=== PATIENT | female | born 1970 | race Caucasian/White ===

== ENCOUNTER → 2016-08-10 | Outpatient (CLI) | payer BC ==
--- NOTE | 2016-08-10 13:01 | XR ---
EXAMINATION TYPE: XR chest 2V DATE OF EXAM: 08/10/2016 12:56 PM COMPARISON: 08/06/2015 INDICATION: Breast cancer, right axillary and chest pain TECHNIQUE: 2 view chest FINDINGS: The heart size is normal. The pulmonary vasculature is normal. The lungs are clear. IMPRESSION: 1. No acute pulmonary process.
== END | disposition home or self-care (01) ==
LOC: RADXRMAIN 12:39
PROVIDERS: ATTEND Internal Medicine Hematology & Oncology
DX: C50.811 Malignant neoplasm of overlapping sites of right female breast (principal); C54.9 Malignant neoplasm of corpus uteri, unspecified; C73 Malignant neoplasm of thyroid gland; D72.829 Elevated white blood cell count, unspecified; R07.9 Chest pain, unspecified
CPT/HCPCS: 71020

== ENCOUNTER 2016-08-26 14:19 | Emergency (ER) | payer BC ==
[2016-08-26 14:28] VITALS: BP 141/73; PULSE 89; RESP 16; TEMP 97.6
--- NOTE | 2016-08-26 14:37 | ED ---
Fall HPI - General Chief Complaint: Fall Stated Complaint: Fall Time Seen by Provider: 08/26/16 14:30 Source: patient, RN notes reviewed Mode of arrival: ambulatory Limitations: no limitations - History of Present Illness Initial Comments: 46-year-old female presents emergency Department chief complaint of fall. She states she was rollerblading hit the dirt fell. She states she fell backwards onto the dirt. Denies any head injury no LOC. Patient complains of low back pain. She also complains of abrasions to bilateral elbows along with increased pain to the right elbow. She states is painful with range of motion. She denies any shortness of breath but states it hurts when she takes deep inspiration her back. She states she has no rib tenderness denies any abdominal pain including nausea vomiting. Patient has no lower extremity injuries. Patient states she was wearing a helmet. - Related Data Home Medications Medication Instructions Recorded Confirmed Hyoscyamine Sulfate [Hyoscyamine 0.125 mg SL DAILY 12/11/13 08/26/16 Sulfate SL] Lansoprazole [Prevacid] 30 mg PO DAILY 12/11/13 08/26/16 Levothyroxine Sodium [Synthroid] 175 mcg PO DAILY 12/11/13 08/26/16 ALPRAZolam [Xanax] 0.25 mg PO TID PRN 03/26/16 08/26/16 Previous Rx's Medication Instructions Recorded Hydrocodone/Acetaminophen [[place] 1 tab PO Q6HR PRN #15 tab 08/26/16 5-325] Allergies Allergy/AdvReac Type Severity Reaction Status Date / Time aspirin Allergy Unknown Verified 08/26/16 14:28 Penicillins Allergy Dyspnea Verified 08/26/16 14:28 Review of Systems ROS Statement: Those systems with pertinent positive or pertinent negative responses have been documented in the HPI. ROS Other: All systems not noted in ROS Statement are negative. Past Medical History Past Medical History: Asthma, Cancer, Hypertension Additional Past Medical History / Comment(s): bowel blockage History of Any Multi-Drug Resistant Organisms: None Reported Past Surgical History: Breast Surgery, Section, Hysterectomy, Tonsillectomy, Tubal Ligation Additional Past Surgical History / Comment(s): knee surgery, nasal repair, bowel surgery, donated (L) kidney. Past Psychological History: No Psychological Hx Reported Smoking Status: Current every day smoker Past Alcohol Use History: Occasional Past Drug Use History: None Reported General Exam Limitations: no limitations General appearance: alert, in no apparent distress Head exam: Present: atraumatic, normocephalic, normal inspection Neck exam: Present: normal inspection, full ROM. Absent: tenderness, meningismus, lymphadenopathy Respiratory exam: Present: normal lung sounds bilaterally, chest wall tenderness. Absent: respiratory distress, wheezes, rales, rhonchi, stridor Cardiovascular Exam: Present: regular rate, normal rhythm, normal heart sounds. Absent: systolic murmur, diastolic murmur, rubs, gallop, clicks GI/Abdominal exam: Present: soft, normal bowel sounds. Absent: distended, tenderness, guarding, rebound, rigid Extremities exam: Present: other (Bilateral elbows there are multiple abrasions noted no active bleeding there is some swelling noted to the right elbow with pain on range of motion. Neurovascular intact left elbow full range of motion neurovascular intact no iris deformity) Back exam: Present: full ROM, tenderness (Tenderness to the mid to low back tenderness), paraspinal tenderness, vertebral tenderness Neurological exam: Present: alert, oriented X3, CN II-XII intact, reflexes normal. Absent: motor sensory deficit Skin exam: Present: warm, dry, intact, normal color. Absent: rash Course Vital Signs 08/26/16 14:22 Temperature 97.6 F Pulse Rate 89 Respiratory 16 Rate Blood Pressure 141/73 O2 Sat by Pulse 100 Oximetry Medical Decision Making - Medical Decision Making 46-year-old female presented emergency from for fall from rollerblading. Patient has no acute fractures per x-ray and radiology reading. Patient will be discharged with pain medication. Return parameters were discussed. Disposition Clinical Impression: Fall from roller shoes, Back contusion, Elbow contusion Disposition: HOME SELF-CARE Condition: Stable Instructions: Contusion in Adults (ED) Additional Instructions: Please return to the Emergency Department if symptoms worsen or any other concerns. Prescriptions: Hydrocodone/Acetaminophen [[place] 5-325] 1 tab PO Q6HR PRN #15 tab PRN Reason: Pain Time of Disposition: 15:01
--- NOTE | 2016-08-26 14:52 | XR ---
EXAMINATION TYPE: XR thoracic spine 2V DATE OF EXAM: 08/26/2016 2:48 PM CLINICAL HISTORY: pain TECHNIQUE: Frontal, lateral, and swimmer's view of thoracic spine are obtained. COMPARISON: None. FINDINGS: Thoracic spine show satisfactory alignment without evidence of acute fracture or dislocatio n. Vertebral body heights are preserved. Mild scattered degenerative disc space narrowing and spondy losis. Visualized ribs are unremarkable. IMPRESSION: No acute fracture or dislocation is seen in the thoracic spine. ICD 10 NO FRACTURE, INIT IAL EVALUATION
--- NOTE | 2016-08-26 14:53 | XR ---
EXAMINATION TYPE: XR lumbar spine 2 or 3V DATE OF EXAM ORDERED: 08/26/2016 2:48 PM HISTORY: Pain. COMPARISON: Previous study dated 06/16/2009. FINDINGS: Vertebral body height and alignment are maintained. There is no spondylolysis or spondylol isthesis. No fractures are seen. There is mild, diffuse disc space loss, most marked at L2-3 with relative sparing of L3-4. The pedicl es are intact. IMPRESSION: 1. NO ACUTE OSSEOUS LESION. 2. DEGENERATIVE CHANGE.
--- NOTE | 2016-08-26 14:54 | XR ---
EXAMINATION TYPE: XR elbow complete RT DATE OF EXAM ORDERED: 08/26/2016 2:50 PM HISTORY: Pain. COMPARISON: None. FINDINGS: No fracture, dislocation or elbow joint effusion is seen. There is a tiny olecranon spur. IMPRESSION: 1. NO ACUTE OSSEOUS LESION. 2. TINY OLECRANON SPUR.
== END 2016-08-26 15:07 | disposition home or self-care (01) ==
LOC: EC 14:19
DX: S50.02XA Contusion of left elbow, initial encounter (principal); S50.01XA Contusion of right elbow, initial encounter; S30.0XXA Contusion of lower back and pelvis, initial encounter; Z79.899 Other long term (current) drug therapy; Z88.0 Allergy status to penicillin; Z88.6 Allergy status to analgesic agent; Z85.9 Personal history of malignant neoplasm, unspecified; W17.89XA Other fall from one level to another, initial encounter
CPT/HCPCS: 72070; 72100; 99283

== ENCOUNTER → 2016-12-10 | Outpatient (CLI) | payer OTHER ==
--- NOTE | 2016-12-10 09:45 | MR ---
EXAMINATION TYPE: MR lumbar wo con DATE OF EXAM: 12/10/2016 COMPARISON: NONE HISTORY: HX of Breast CA, Neck and Low Back Pain since 2016 TECHNIQUE: T1 and T2 axial and sagittal images of the lumbar spine are submitted. FINDINGS: There is no abnormal signal seen within the visualized spinal cord or paraspinal soft tissu es. At L1-2 there is no disc herniation or canal stenosis. No foraminal encroachment. At L2-3 there is degenerative disc disease and circumferential disc bulging with hypertrophy of the f acet joints. No Canal stenosis or foraminal encroachment. At L3-4 there is moderate facet arthropathy with no disc herniation or canal stenosis. Neural foramin a patent. At L4-5 there is degenerative disc disease with facet arthropathy and very minimal anterolisthesis of L4 on L5 which appears to be secondary to marked facet arthropathy. Mild bilateral foraminal encroac hment. No canal stenosis or focal herniation. At L5-S1 there is marked facet arthropathy but no disc herniation, canal stenosis, or foraminal encro achment. IMPRESSION: 1. Multilevel degenerative disc disease with multilevel severe facet arthropathy and the most marked findings seen at L4-5 and L5-S1. Minimal anterolisthesis L4 on L5 results in bilateral foraminal encr oachment. 2. No focal focal herniation or canal stenosis. 3. 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 EXAMINATION TYPE: MR tspine wo con DATE OF EXAM: 12/10/2016 COMPARISON: NONE HISTORY: HX of Breast CA, Neck and Low Back Pain since 2015 Standard multiplanar, multisequence MRI departmental protocol Multiplanar, multisequence images of the thoracic spine were acquired. FINDINGS: Alignment is anatomic. There is loss of vertebral signal and space at all levels compatible with mild to moderate multilevel degenerative disc disease. At T1-T2 there is very mild left paracentral disc bulging but no focal herniation or canal stenosis. Neural foramina remain patent. At T2-T3 there is no disc herniation, canal stenosis, or foraminal encroachment. T3-T4 there is no disc herniation, canal stenosis or foraminal encroachment. At T4-T5 there is no disc herniation, canal stenosis or foraminal encroachment. At T5-T6 there is a right paracentral focal disc small herniation. There is moderate effacement of th ecal sac. Neural foramina remains patent with mild narrowing. No spinal cord contact. At T6-T7 there is a focal right paracentral disc herniation results in mild to moderate anterior comp ression of the spinal cord. Chronic appearing endplate deformity of T6 noted. Compatible with chronic mild compression. T7-T8 mild central disc protrusion with moderate effacement of thecal sac but no canal stenosis. Neur al foramina remain patent. At T8-T9 there is no disc herniation, canal stenosis, or foraminal encroachment. At T9-T10 there is no disc herniation, canal stenosis, or foraminal encroachment At T10-T11 there is no disc herniation or canal stenosis. Left lateral disc bulging noted which resul ts in mild to moderate left-sided foraminal encroachment. At T11-T12 there is left paracentral disc protrusion with mild left-sided foraminal encroachment. Mil d effacement of thecal sac but no canal stenosis. No abnormal signal the visualized spinal cord. Marrow signal is maintained. No paraspinal masses. Visualized aorta of normal caliber. IMPRESSION: 1. Multilevel degenerative disc disease with mild to moderate anterior compression of spinal cord T6- T7 secondary to focal right paracentral disc herniation. No abnormal signal in the visualized spinal cord. 2. Multiple disc herniation or protrusions as discussed above with multilevel degenerative disc disea se.
== END | disposition home or self-care (01) ==
LOC: RADMRIMAIN 08:19
PROVIDERS: ATTEND Radiology Radiation Oncology
DX: C50.411 Malignant neoplasm of upper-outer quadrant of right female breast (principal); M51.24 Other intervertebral disc displacement, thoracic region; M43.16 Spondylolisthesis, lumbar region; M51.36 Other intervertebral disc degeneration, lumbar region; M51.34 Other intervertebral disc degeneration, thoracic region; G95.29 Other cord compression; M46.86 Other specified inflammatory spondylopathies, lumbar region
CPT/HCPCS: 72146; 72148

== ENCOUNTER → 2017-04-07 | Outpatient (CLI) | payer OTHER ==
--- NOTE | 2017-04-11 10:23 | USB ---
Reason for exam: clinical finding. History: Patient is postmenopausal, has history of breast cancer at age 45, has history of endometrial cancer at age 25, and has history of other cancer at age 20. Family history of breast cancer in mother, premenopausal breast cancer in sister at age 30, and breast cancer in maternal aunt. Malignant US biopsy breast VAD RT of the right breast, August 04, 2015. Benign excisional biopsy of the right breast, May 27, 2002. Ultrasound-guided cyst aspiration of the right breast, November 15, 1999. Cyst aspiration of the right breast. Taking hormonal contraceptives for 6 years beginning at age 32. Physical Findings: Nurse Summary: Patient complains of right breast lump for 1 month green/yellow discharge, constant sharp pain. 1 cm nodule right breast at 4 o'clock (nurse mj). US Breast RT Right breast ultrasound includes all four quadrants, the retroareolar region and axilla. Finding demonstrates a 1.6 x 0.6 x 0.9cm oval, hypoechoic lesion at 4 o'clock, a 0.9 x 0.7 x 0.5cm oval, hypoechoic lesion at 3 o'clock for which a biopsy is recommended for these locations, a 0.4 x 0.4 x 0.5cm oval, hypoechoic lesion at 5 o'clock, a 0.3 x 0.3 x 0.5cm oval, hypoechoic lesion at 9 o'clock and a 1.5 x 0.8 x 1.4cm oval, mixed lesion at 10 o'clock, area of scar prior cancer. These results were verbally communicated with the patient and result sheet given to the patient on 04/07/17. ASSESSMENT: Incomplete: need additional imaging evaluation, BI-RAD 0 RECOMMENDATION: Special view mammogram of the right breast.
--- NOTE | 2017-04-13 07:32 | MM ---
Reason for exam: additional evaluation requested from abnormal screening. Last mammogram was performed 1 year and 8 months ago. History: Patient is postmenopausal, has history of breast cancer at age 45, has history of endometrial cancer at age 25, and has history of other cancer at age 20. Family history of breast cancer in mother, premenopausal breast cancer in sister at age 30, and breast cancer in maternal aunt. Malignant US biopsy breast VAD RT of the right breast, August 04, 2015. Benign excisional biopsy of the right breast, May 27, 2002. Ultrasound-guided cyst aspiration of the right breast, November 15, 1999. Cyst aspiration of the right breast. Taking hormonal contraceptives for 6 years beginning at age 32. MG Diagnostic Mammo RT w CAD CC and MLO view(s) were taken of the right breast. Prior study comparison: August 04, 2015, right breast MG diagnostic mammo RT wo CAD. July 24, 2015, bilateral MG diagnostic mammo w CAD HERMELINDA. The breast tissue is heterogeneously dense. This may lower the sensitivity of mammography. Finding: There are typically benign dystrophic, amorphous, regional calcifications in the right breast. Post surgical changes. No significant changes in finding since August 04, 2015. These results were verbally communicated with the patient and result sheet given to the patient on 04/07/17. ASSESSMENT: Benign, BI-RAD 2 RECOMMENDATION: Aspiration and ultrasound core biopsy of the right breast. (Based on ultrasound results, right breast [address]). [address] Ladd with mammographic findings and already scheduled for ultrasound biopsy on 04/21/16. PRELIMINARY REPORT CALLED AND FAXED TO DR. LADD ON 04/13/17.
== END | disposition home or self-care (01) ==
LOC: RADUSWWP 08:00
PROVIDERS: ATTEND Internal Medicine Hematology & Oncology
DX: N63.20 Unspecified lump in the left breast, unspecified quadrant (principal); Z85.3 Personal history of malignant neoplasm of breast
CPT/HCPCS: 76641; G0206

== ENCOUNTER → 2017-04-21 | Day surgery (SDC) | payer OTHER ==
[2017-04-21 07:30] VITALS: RESP 16; TEMP 98.1; BMI 22.8
--- NOTE | 2017-04-21 09:41 | USB ---
EXAMINATION TYPE: US biopsy breast VAD RT, US biopsy breast add'l VAD RT DATE OF EXAM: 04/21/2017 CLINICAL HISTORY: Z85.3 History of Breast Ca N63 Breast Lump/Mass. TECHNIQUE: Ultrasound guided core biopsy of right breast 3 and 4:00 positions. COMPARISON: NONE FINDINGS: The procedure of ultrasound guided core biopsy was explained to the patient. Benefits, alternatives, and risks were discussed. An informed consent was then obtained. The patient was placed in supine positioning for imaging and for the procedure. The overlying skin was prepped and draped in usual sterile fashion. Lidocaine buffered with bicarbonate was used as anesthetic into the skin and subcutaneous tissue up to area of concern in the breast. A yvonne was made with surgical scalpel. Under ultrasound guidance, a 12-gauge vacuum assisted biopsy gun device was used to obtain 2 core samples from the 4:00 position. Following the first sample the lesion was no longer visible indicating a cystic structure. Following this, a biopsy clip was left in lesion. 3 core samples were obtained from the 3:00 lesion with subsequent clip marker device deployed following biopsy. Postprocedural mammogram demonstrates appropriate deployment. The patient tolerated the procedure well without any immediate complication. The patient was kept in the radiology department for short stay after the procedure and then discharged home in stable condition. IMPRESSION: Successful, uncomplicated to separate ultrasound guided core biopsy of areas of concern in the right breast, full pathology results to follow. Pathology Results: Benign A. BREAST, RIGHT, SITE A 4:00, CORE BIOPSY: SCAR WITH FIBROSIS, CHRONIC INFLAMMATION, HISTIOCYTES AND FOREIGN BODY REACTION TO REFRACTILE MATERIAL. NEGATIVE FOR MALIGNANCY. B. BREAST, RIGHT, SITE B 3:00, CORE BIOPSY: SCAR WITH FIBROSIS, FAT NECROSIS, HISTIOCYTES, CHRONIC INFLAMMATION AND CALCIFICATIONS. NEGATIVE FOR MALIGNANCY. Recommendation Follow up ultrasound of the right breast in 6 months. CHERD
[2017-04-21 09:50] VITALS: BP 132/82; PULSE 80
--- NOTE | 2017-04-21 10:22 | MM ---
Reason for exam: additional evaluation requested from abnormal screening. Last mammogram was performed less than 1 month ago. History: Patient is postmenopausal, has history of breast cancer at age 45, has history of endometrial cancer at age 25, and has history of other cancer at age 20. Family history of breast cancer in mother, premenopausal breast cancer in sister at age 30, and breast cancer in maternal aunt. Malignant US biopsy breast VAD RT of the right breast, August 04, 2015. Benign excisional biopsy of the right breast, May 27, 2002. Ultrasound-guided cyst aspiration of the right breast, November 15, 1999. Cyst aspiration of the right breast. Taking hormonal contraceptives for 6 years beginning at age 32. MG Diagnostic Mammo RT Wo CAD CC and LM view(s) were taken of the right breast. Prior study comparison: April 08, 2017, right breast MG diagnostic mammo RT w CAD. August 04, 2015, right breast MG diagnostic mammo RT wo CAD. ASSESSMENT: Post procedure mammogram for marker placement RECOMMENDATION: Ultrasound of the right breast in 6 months. PENDING PATHOLOGY RESULTS.
== END ==
LOC: RADUSWWP 06:53
PROVIDERS: ATTEND Internal Medicine Hematology & Oncology
DX: L90.5 Scar conditions and fibrosis of skin (principal); N61.0 Mastitis without abscess; N64.1 Fat necrosis of breast; Z85.3 Personal history of malignant neoplasm of breast; N63.0 Unspecified lump in unspecified breast; Z88.6 Allergy status to analgesic agent; Z88.5 Allergy status to narcotic agent
CPT/HCPCS: 88305; 77065; 19083; 19084; A4648; J2001

== ENCOUNTER → 2017-05-10 | Outpatient (CLI) | payer OTHER ==
[2017-05-10 15:31] LABS: Basophils # (A) 0.1 k/uL (0-0.2); Basophils % (A) 1 %; Eosinophils # (A) 0.4 k/uL (0-0.7); Eosinophils % (A) 5 %; HCT 38.8 % (34.0-46.0); HGB 12.4 gm/dL (11.4-16.0); Lymphocytes # (A) 3.1 k/uL (1.0-4.8); Lymphocytes % (A) 36 %; MCH 30.6 pg (25.0-35.0); MCHC 31.9 g/dL (31.0-37.0); MCV 95.8 fL (80.0-100.0); Mean Platelet Volume 7.8; Monocytes # (A) 0.6 k/uL (0-1.0); Monocytes % (A) 7 %; Neutrophils # (A) 4.4 k/uL (1.3-7.7); Neutrophils % (A) 51 %; Platelet Count 279 k/uL (150-450); RBC 4.05 m/uL (3.80-5.40); RDW 13.6 % (11.5-15.5); WBC 8.6 k/uL (3.8-10.6)
[2017-05-10 15:42] LABS: ALT 35 U/L (9-52); AST 17 U/L (14-36); Albumin 4.1 g/dL (3.5-5.0); Alkaline Phosphatase 103 U/L (38-126); Anion Gap 10 mmol/L; Blood Urea Nitrogen 12 mg/dL (7-17); Calcium 9.6 mg/dL (8.4-10.2); Carbon Dioxide 27 mmol/L (22-30); Chloride 107 mmol/L (98-107); Glucose 104 mg/dL (74-99); Potassium 4.2 mmol/L (3.5-5.1); Sodium 144 mmol/L (137-145); Total Bilirubin 0.2 mg/dL (0.2-1.3); Total Protein 6.9 g/dL (6.3-8.2)
== END | disposition home or self-care (01) ==
LOC: LABWHC1 15:14
PROVIDERS: ATTEND Family Medicine
DX: R53.83 Other fatigue (principal); E55.9 Vitamin D deficiency, unspecified
CPT/HCPCS: 36415; 80053; 82306; 84443; 85025

== ENCOUNTER → 2017-05-15 | Outpatient (CLI) | payer OTHER ==
--- NOTE | 2017-05-15 10:53 | XR ---
EXAMINATION TYPE: XR chest 2V DATE OF EXAM: 05/15/2017 COMPARISON: 08/10/2016 INDICATION: Fatigue TECHNIQUE: Frontal and lateral views of the chest are obtained. FINDINGS: The heart size is normal. The pulmonary vasculature is normal. The lungs are clear. IMPRESSION: 1. No acute pulmonary process.
== END | disposition home or self-care (01) ==
LOC: RADXRMAIN 10:04
PROVIDERS: ATTEND Family Medicine
DX: R53.83 Other fatigue (principal)
CPT/HCPCS: 71046

== ENCOUNTER → 2017-08-10 | Outpatient (CLI) | payer OTHER ==
[2017-08-10 09:15] LABS: Potassium 4.4 mmol/L (3.5-5.1)
[2017-08-10 09:32] LABS: T4, Free (Free Thyroxine) 1.62 ng/dL (0.78-2.19)
== END | disposition home or self-care (01) ==
LOC: LABWHC1 06:44
PROVIDERS: ATTEND Family Medicine
DX: I10 Essential (primary) hypertension (principal); E03.9 Hypothyroidism, unspecified
CPT/HCPCS: 36415; 80051; 82565; 84439; 84443; 84481; 84520

== ENCOUNTER → 2017-09-05 | Outpatient (CLI) | payer OTHER ==
--- NOTE | 2017-09-05 12:24 | XR ---
EXAMINATION TYPE: XR ankle complete RT DATE OF EXAM: 09/05/2017 COMPARISON: NONE HISTORY: Sprain of right ankle swelling distal foot, crush injury today TECHNIQUE: Three-view right ankle FINDINGS: Ankle mortise is intact. Soft tissues are normal. No acute fractures within the ankle are e vident. Small plantar calcaneal heel spur is present. IMPRESSION: 1. No acute osseous abnormality right foot. 2. Follow-up exam can be performed 7-10 days from acute trauma for continued pain
--- NOTE | 2017-09-05 12:26 | XR ---
EXAMINATION TYPE: XR foot complete RT DATE OF EXAM: 09/05/2017 COMPARISON: NONE HISTORY: Crush injury foot soft tissue swelling TECHNIQUE: Three-view right foot FINDINGS: No displaced fractures are evident. Follow-up study can be performed 7-10 days from acute t rauma for continued pain There is soft tissue swelling over the distal metatarsal phalangeal joint space. Small plantar calcan eal heel spur is present. Metatarsal alignment appears normal IMPRESSION: 1. Soft tissue swelling distal dorsal foot. 2. Follow-up study can be performed 7-10 days from acute trauma for continued pain
== END | disposition home or self-care (01) ==
LOC: RADXRMAIN 11:42
PROVIDERS: ATTEND Emergency Medicine
DX: S93.401A Sprain of unspecified ligament of right ankle, initial encounter (principal); S97.81XA Crushing injury of right foot, initial encounter

== ENCOUNTER → 2017-09-12 | Outpatient (CLI) | payer OTHER ==
--- NOTE | 2017-09-12 11:39 | XR ---
Right foot HISTORY: Crush to right 3 views right foot correlated to prior right foot 09/03/2017 Bone mineralization, joint spaces and alignment are stable. Degenerative change present at the first metatarsophalangeal joint. There is a plantar calcaneus spur. Soft tissue swelling suspected. IMPRESSION: No fracture or dislocation
== END | disposition home or self-care (01) ==
LOC: RADXRMAIN 10:46
PROVIDERS: ATTEND Emergency Medicine
DX: S97.81XD Crushing injury of right foot, subsequent encounter (principal)

== ENCOUNTER 2018-06-30 22:59 | Inpatient (IN) | payer BC, OTHER ==
--- NOTE | 2018-06-30 23:31 | ED ---
Overdose HPI - General Chief Complaint: Overdose Stated Complaint: Overdose Time Seen by Provider: 06/30/18 23:16 Source: police, EMS Mode of arrival: EMS Limitations: altered mental status, physical limitation - History of Present Illness Initial Comments: Patient is a 48-year-old woman brought by ambulance to be evaluated for overdose. The patient had reportedly taken approximately 30 Xanax. She did leave and expressing suicidal intent. The overdose reported to be approximately 3 hours ago. The patient is very somnolent and not providing any history. MD Complaint: intentional overdose -: hour(s) Intent: suicide attempt Treatments Prior to Arrival: oxygen - Related Data Home Medications Medication Instructions Recorded Confirmed ALPRAZolam [Xanax] 0.25 mg PO TID 03/26/16 07/01/18 Ergocalciferol (Vitamin D2) 50,000 unit PO Q7D 07/01/18 07/01/18 [Vitamin D2] Hyoscyamine Sulfate [Levbid] 0.75 mg PO BID 07/01/18 07/01/18 Levothyroxine Sodium [Synthroid] 125 mcg PO DAILY 07/01/18 07/01/18 Magnesium Oxide [Mag-Ox] 400 mg PO DAILY 07/01/18 07/01/18 Omeprazole 20 mg PO BID 07/01/18 07/01/18 Allergies Allergy/AdvReac Type Severity Reaction Status Date / Time aspirin Allergy Unknown Verified 07/01/18 10:11 codeine Allergy Rash/Hives Verified 07/01/18 10:11 Review of Systems ROS Statement: Those systems with pertinent positive or pertinent negative responses have been documented in the HPI. ROS Other: All systems not noted in ROS Statement are negative. Limitations: ROS unobtainable due to patients medical condition (Overdose) Past Medical History Past Medical History: Asthma, Cancer, Hypertension Additional Past Medical History / Comment(s): bowel blockage History of Any Multi-Drug Resistant Organisms: None Reported Past Surgical History: Breast Surgery, Section, Hysterectomy, Tonsillectomy, Tubal Ligation Additional Past Surgical History / Comment(s): knee surgery, nasal repair, bowel surgery, donated (L) kidney. nodules removed off vocal cord. thyroidectomy due thryoid cancer . Past Psychological History: No Psychological Hx Reported Past Alcohol Use History: Occasional - Past Family History Mother Family Medical History: Cancer Additional Family Medical History / Comment(s): area unknown Father Family Medical History: Cancer Additional Family Medical History / Comment(s): Skin cancer, further history unknown by family General Exam Limitations: altered mental status, physical limitation General appearance: lethargic Head exam: Present: atraumatic, normocephalic Eye exam: Present: normal appearance, PERRL. Absent: scleral icterus, conjunctival injection ENT exam: Present: normal oropharynx Neck exam: Present: normal inspection. Absent: tenderness Respiratory exam: Present: normal lung sounds bilaterally. Absent: respiratory distress, wheezes, rales, rhonchi, stridor Cardiovascular Exam: Present: regular rate, normal rhythm, normal heart sounds. Absent: systolic murmur, diastolic murmur, rubs, gallop GI/Abdominal exam: Present: soft. Absent: distended, tenderness, guarding, rebound, mass Extremities exam: Present: normal inspection, normal capillary refill. Absent: pedal edema, calf tenderness Back exam: Present: normal inspection. Absent: CVA tenderness (R), CVA tenderness (L) Neurological exam: Present: altered, CN II-XII intact, reflexes normal Skin exam: Present: warm, dry, intact, normal color. Absent: rash Course Vital Signs 06/30/18 07/01/18 07/01/18 23:06 00:30 00:50 Temperature 97.0 F L Pulse Rate 98 97 Respiratory 18 18 Rate Blood Pressure 110/63 97/74 O2 Sat by Pulse 94 L 96 94 L Oximetry 07/01/18 07/01/18 07/01/18 01:10 01:20 01:30 Temperature Pulse Rate 99 90 89 Respiratory 15 30 H 21 Rate Blood Pressure 143/98 127/85 136/76 O2 Sat by Pulse 100 100 100 Oximetry 07/01/18 07/01/18 07/01/18 01:40 01:50 02:00 Temperature Pulse Rate 88 87 87 Respiratory 18 16 17 Rate Blood Pressure 125/80 128/88 124/90 O2 Sat by Pulse 95 100 Oximetry 07/01/18 07/01/18 07/01/18 02:30 03:00 03:30 Temperature Pulse Rate 89 82 79 Respiratory 16 13 13 Rate Blood Pressure 131/88 131/88 128/88 O2 Sat by Pulse 100 100 100 Oximetry 07/01/18 07/01/18 04:00 04:15 Temperature Pulse Rate 79 81 Respiratory 13 15 Rate Blood Pressure 124/86 125/87 O2 Sat by Pulse 100 100 Oximetry Procedures - Intubation Paralytic: Succinylcholine Laryngoscope: Gil Size: 3 ET Tube Size: 7.5 Tube Secured Location: lips Tube Placement Confirmation: visualized tube passing through cords, equal breath sounds bilaterally, no breath sounds over epigastrium, confirmation by capnometry Patient Tolerated Procedure: well Medical Decision Making - Medical Decision Making On subsequent evaluation, the patient was having decreased gag reflex. Therefore patient intubated for airway protection. This discussed beforehand with patient's daughter and partner. Patient intubated without complication. Chest x-ray reviewed by myself. Case is discussed with Dr. Schaeffer, for intensive care coverage. - Lab Data Result diagrams: 07/02/18 04:48 07/02/18 04:48 Lab Results 06/30/18 06/30/18 06/30/18 Range/Units 23:26 23:26 23:28 WBC 9.3 (3.8-10.6) k/uL RBC 4.49 (3.80-5.40) m/uL Hgb 13.9 (11.4-16.0) gm/dL Hct 43.0 (34.0-46.0) % MCV 95.7 (80.0-100.0) fL MCH 30.9 (25.0-35.0) pg MCHC 32.3 (31.0-37.0) g/dL RDW 14.4 (11.5-15.5) % Plt Count 327 (150-450) k/uL Neutrophils % 63 % Lymphocytes % 27 % Monocytes % 5 % Eosinophils % 3 % Basophils % 1 % Neutrophils # 5.9 (1.3-7.7) k/uL Lymphocytes # 2.5 (1.0-4.8) k/uL Monocytes # 0.5 (0-1.0) k/uL Eosinophils # 0.2 (0-0.7) k/uL Basophils # 0.1 (0-0.2) k/uL Sample Site ABG pH (7.35-7.45) ABG pCO2 (35-45) mmHg ABG pO2 (83-108) mmHg ABG HCO3 (21-25) mmol/L ABG Total CO2 (19-24) mmol/L ABG O2 Saturation (94-97) % ABG Base Excess mmol/L Óscra Test FiO2 % Sodium 142 (137-145) mmol/L Potassium 4.5 (3.5-5.1) mmol/L Chloride 106 (98-107) mmol/L Carbon Dioxide 24 (22-30) mmol/L Anion Gap 12 mmol/L BUN 9 (7-17) mg/dL Creatinine 0.72 (0.52-1.04) mg/dL Est GFR (CKD-EPI)AfAm >90 (>60 ml/min/1.73 sqM) Est GFR (CKD-EPI)NonAf >90 (>60 ml/min/1.73 sqM) Glucose 58 L (74-99) mg/dL POC Glucose (mg/dL) (75-99) mg/dL POC Glu Trim Setter ID Calcium 9.9 (8.4-10.2) mg/dL Total Bilirubin 0.8 (0.2-1.3) mg/dL AST 31 (14-36) U/L ALT 24 (9-52) U/L Alkaline Phosphatase 79 (38-126) U/L Total Protein 8.2 (6.3-8.2) g/dL Albumin 4.6 (3.5-5.0) g/dL Urine HCG, Qual (Not Detectd) Salicylates <1.0 mg/dL Urine Opiates Screen Not Detected (NotDetected) Ur Oxycodone Screen Not Detected (NotDetected) Urine Methadone Screen Not Detected (NotDetected) Ur Propoxyphene Screen Not Detected (NotDetected) Acetaminophen <10.0 ug/mL Ur Barbiturates Screen Not Detected (NotDetected) U Tricyclic Antidepress Not Detected (NotDetected) Ur Phencyclidine Scrn Not Detected (NotDetected) Ur Amphetamines Screen Not Detected (NotDetected) U Methamphetamines Scrn Not Detected (NotDetected) U Benzodiazepines Scrn Detected H (NotDetected) Urine Cocaine Screen Not Detected (NotDetected) U Marijuana (THC) Screen Not Detected (NotDetected) Serum Alcohol 45 mg/dL 06/30/18 07/01/18 07/01/18 Range/Units 23:28 00:54 01:52 WBC (3.8-10.6) k/uL RBC (3.80-5.40) m/uL Hgb (11.4-16.0) gm/dL Hct (34.0-46.0) % MCV (80.0-100.0) fL MCH (25.0-35.0) pg MCHC (31.0-37.0) g/dL RDW (11.5-15.5) % Plt Count (150-450) k/uL Neutrophils % % Lymphocytes % % Monocytes % % Eosinophils % % Basophils % % Neutrophils # (1.3-7.7) k/uL Lymphocytes # (1.0-4.8) k/uL Monocytes # (0-1.0) k/uL Eosinophils # (0-0.7) k/uL Basophils # (0-0.2) k/uL Sample Site Right Radial ABG pH 7.38 (7.35-7.45) ABG pCO2 41 (35-45) mmHg ABG pO2 303 H (83-108) mmHg ABG HCO3 24 (21-25) mmol/L ABG Total CO2 26 H (19-24) mmol/L ABG O2 Saturation 100.0 H (94-97) % ABG Base Excess -1.0 mmol/L Óscar Test Yes FiO2 100 % Sodium (137-145) mmol/L Potassium (3.5-5.1) mmol/L Chloride (98-107) mmol/L Carbon Dioxide (22-30) mmol/L Anion Gap mmol/L BUN (7-17) mg/dL Creatinine (0.52-1.04) mg/dL Est GFR (CKD-EPI)AfAm (>60 ml/min/1.73 sqM) Est GFR (CKD-EPI)NonAf (>60 ml/min/1.73 sqM) Glucose (74-99) mg/dL POC Glucose (mg/dL) 115 H (75-99) mg/dL POC Glu Trim Setter ID Dina Duncan Calcium (8.4-10.2) mg/dL Total Bilirubin (0.2-1.3) mg/dL AST (14-36) U/L ALT (9-52) U/L Alkaline Phosphatase (38-126) U/L Total Protein (6.3-8.2) g/dL Albumin (3.5-5.0) g/dL Urine HCG, Qual Not Detected (Not Detectd) Salicylates mg/dL Urine Opiates Screen (NotDetected) Ur Oxycodone Screen (NotDetected) Urine Methadone Screen (NotDetected) Ur Propoxyphene Screen (NotDetected) Acetaminophen ug/mL Ur Barbiturates Screen (NotDetected) U Tricyclic Antidepress (NotDetected) Ur Phencyclidine Scrn (NotDetected) Ur Amphetamines Screen (NotDetected) U Methamphetamines Scrn (NotDetected) U Benzodiazepines Scrn (NotDetected) Urine Cocaine Screen (NotDetected) U Marijuana (THC) Screen (NotDetected) Serum Alcohol mg/dL - EKG Data -: EKG Interpreted by Me EKG shows normal: sinus rhythm, axis, intervals (Normal), QRS complexes, ST-T waves (Normal) Rate: normal (95 bpm) Critical Care Time Critical Care Time: Yes (40 minutes) Disposition Clinical Impression: Overdose of benzodiazepine, Suicide attempt Disposition: ADMITTED IP TO THIS [facility] Condition: Good Is patient prescribed a controlled substance at d/c from ED?: No
[2018-06-30 23:44] LABS: Basophils # (A) 0.1 k/uL (0-0.2); Basophils % (A) 1 %; Eosinophils # (A) 0.2 k/uL (0-0.7); Eosinophils % (A) 3 %; HGB 13.9 gm/dL (11.4-16.0); Lymphocytes # (A) 2.5 k/uL (1.0-4.8); Lymphocytes % (A) 27 %; MCH 30.9 pg (25.0-35.0); MCHC 32.3 g/dL (31.0-37.0); MCV 95.7 fL (80.0-100.0); Mean Platelet Volume 7.5; Monocytes # (A) 0.5 k/uL (0-1.0); Monocytes % (A) 5 %; Neutrophils # (A) 5.9 k/uL (1.3-7.7); Neutrophils % (A) 63 %; Platelet Count 327 k/uL (150-450); RBC 4.49 m/uL (3.80-5.40); RDW 14.4 % (11.5-15.5); WBC 9.3 k/uL (3.8-10.6)
[2018-06-30 23:54] LABS: ALT 24 U/L (9-52); AST 31 U/L (14-36); Acetaminophen <10.0 ug/mL; Albumin 4.6 g/dL (3.5-5.0); Alcohol 45 mg/dL; Alkaline Phosphatase 79 U/L (38-126); Anion Gap 12 mmol/L; Blood Urea Nitrogen 9 mg/dL (7-17); Calcium 9.9 mg/dL (8.4-10.2); Carbon Dioxide 24 mmol/L (22-30); Chloride 106 mmol/L (98-107); Glucose 58 mg/dL (74-99); Salicylate <1.0 mg/dL; Sodium 142 mmol/L (137-145); Total Bilirubin 0.8 mg/dL (0.2-1.3); Total Protein 8.2 g/dL (6.3-8.2)
[2018-06-30 23:55] LABS: Potassium 4.5 mmol/L (3.5-5.1)
[2018-07-01 00:05] LABS: Amphetamine Screen,Urine Not Detected (NotDetected); Barbiturate Screen,Urine Not Detected (NotDetected); Benzodiazepines Screen,Urine Detected (NotDetected); Cocaine Screen,Urine Not Detected (NotDetected); Methadone Screen, Urine Not Detected (NotDetected); Opiate Screen,Urine Not Detected (NotDetected); Oxycodone Screen, Urine Not Detected (NotDetected); Phencyclidine Screen,Urine Not Detected (NotDetected); Tricyclic Antidepressant,Urine Not Detected (NotDetected); Urn Cannabinoid Scrn Not Detected (NotDetected)
[2018-07-01] MEDS ORDERED: SUCCINYLCHOLINE CHLORIDE VIAL 200 MG/10 ML VIAL IV STA (00:57)
[2018-07-01] MEDS ORDERED: PROPOFOL 1,000 MG in EMPTY BAG 1 BAG IV ONE (01:22)
[2018-07-01 01:31] LABS: Glucose,Whole Blood 115 mg/dL (75-99)
--- NOTE | 2018-07-01 01:44 | XR ---
EXAM: XR Chest, 1 View CLINICAL HISTORY: ITS.REASON XR Reason: intubation TECHNIQUE: Frontal view of the chest. COMPARISON: No relevant prior studies available. FINDINGS: Lungs: Unremarkable. No consolidation. Pleural space: Unremarkable. No pneumothorax. Heart: No pneumomediastinum. Mediastinum: Unremarkable. Bones/joints: No definite fracture. Tubes, lines and devices: Endotracheal tube and nasogastric tube in proper positioning. IMPRESSION: Endotracheal tube and nasogastric tube in proper positioning.
[2018-07-01 01:55] LABS: ABG HCO3 24 mmol/L (21-25); ABG PCO2 41 mmHg (35-45); ABG PH 7.38 (7.35-7.45); ABG PO2 303 mmHg (83-108); ABG TCO2 26 mmol/L (19-24)
[2018-07-01] MEDS ORDERED: NALOXONE 0.4 MG/ML 1 ML VIAL IV PRN (03:04)
[2018-07-01 04:47] LABS: Glucose,Whole Blood 111 mg/dL (75-99)
[2018-07-01 05:25] LABS: ABG Base Excess 0.7 mmol/L; ABG HCO3 27 mmol/L (21-25); ABG Oxygen Saturation 98.1 % (94-97); ABG PCO2 51 mmHg (35-45); ABG PH 7.33 (7.35-7.45); ABG PO2 113 mmHg (83-108); ABG TCO2 28 mmol/L (19-24)
[2018-07-01 05:35] LABS: Basophils % (A) 1 %; Eosinophils # (A) 0.3 k/uL (0-0.7); Eosinophils % (A) 3 %; HCT 39.1 % (34.0-46.0); HGB 12.5 gm/dL (11.4-16.0); Lymphocytes # (A) 2.3 k/uL (1.0-4.8); Lymphocytes % (A) 26 %; MCH 30.8 pg (25.0-35.0); MCHC 31.9 g/dL (31.0-37.0); MCV 96.6 fL (80.0-100.0); Monocytes # (A) 0.5 k/uL (0-1.0); Monocytes % (A) 6 %; Neutrophils # (A) 5.3 k/uL (1.3-7.7); Neutrophils % (A) 62 %; Platelet Count 329 k/uL (150-450); RBC 4.05 m/uL (3.80-5.40); RDW 14.4 % (11.5-15.5); WBC 8.5 k/uL (3.8-10.6)
[2018-07-01 05:49] LABS: Anion Gap 6 mmol/L; Blood Urea Nitrogen 9 mg/dL (7-17); Calcium 8.8 mg/dL (8.4-10.2); Carbon Dioxide 25 mmol/L (22-30); Chloride 110 mmol/L (98-107); Glucose 100 mg/dL (74-99); Phosphorus 5.2 mg/dL (2.5-4.5); Potassium 4.1 mmol/L (3.5-5.1); Sodium 141 mmol/L (137-145)
[2018-07-01 06:58] VITALS: BMI 22.8
--- NOTE | 2018-07-01 07:44 | XR ---
EXAMINATION TYPE: XR chest 1V portable DATE OF EXAM: 07/01/2018 COMPARISON: Prior chest x-ray 07/01/2018 HISTORY: Intubated TECHNIQUE: Single frontal view of the chest is obtained. FINDINGS: Endotracheal tube, NG tube are overlying appropriate positions. No pneumothorax or pleural effusion. There are cardiac leads. Aorta is dense. Cardiomediastinal silhouette, pulmonary vasculari ty and teetee are stable. IMPRESSION: No acute process.
[2018-07-01] MEDS ORDERED: PROPOFOL 1,000 MG in EMPTY BAG 1 BAG IV SCH (07:45)
[2018-07-01] MEDS: FAMOTIDINE 20 MG/2 ML VIAL IV SCH ×2 (08:03→21:09)
[2018-07-01] MEDS: SODIUM CHLORIDE 0.9% 1,000 ML IV SCH ×3 (08:04→19:04)
[2018-07-01] MEDS ORDERED: CHLORHEXIDINE GLUCONATE 15 ML CUP MUCOUS MEM SCH (09:00)
--- NOTE | 2018-07-01 10:48 | CONS ---
CONSULTATION This is a pulmonary/critical care consultation dated July 01, 2008. REASON FOR CONSULTATION: Overdose of Xanax. This is a 48-year-old female who apparently has previous suicide attempts and apparently was brought in by EMS because of an overdose of Xanax. I was told by the ER doctor that she took 32 mg Xanax tablets. There apparently was a suicide letter at the scene. The patient apparently was seen in the emergency room sometime before midnight. The patient was very somnolent and lethargic. She was not able to protect her airway and Dr. Roche mentioned that he went ahead and just intubated the patient for airway control. Anyway, she is here in the ICU. Currently, she is on the volume assist- control mode rate of 12, tidal volume 470, FiO2 of 40%, PEEP of 5. Blood gases show PO2 113, pCO2 51, pH 7.33. The patient was breathing spontaneously at 17 breaths per minute. The ventilator was adjusted and the rate was increased to 22 and a tidal volume down to 350. She is receiving saline at 125 mL an hour and Diprivan at 30 mcg/kg per per minute. The patient does have a history of hypothyroidism and gastroesophageal reflux disease. Anyway, the patient will be brought off for sedation and we will see if she is ready to be weaned and extubated. No other history is obtained. The ER satish was used primarily for the history. HOME MEDICATIONS: Include hyoscyamine, Prevacid, Synthroid, Xanax. ALLERGIES: ASPIRIN and CODEINE. Medical history is apparently positive for asthma, hypertension, and thyroid cancer. She also apparently has a history of a bowel obstruction. In addition, she has had multiple surgical procedures including breast surgery, , hysterectomy, tonsillectomy, tubal ligation, knee surgery, nasal repair, bowel surgery, nephrectomy for donation, left kidney, vocal cord nodule removal and thyroidectomy because of thyroid cancer. SOCIAL HISTORY: Apparently positive for alcohol use. There is no mention of tobacco use. No mention of illicit drug use. FAMILY HISTORY: There is no family history noted. REVIEW OF SYSTEMS: Cannot really be obtained. There is no mention of review of systems in the ER satish. She was apparently very lethargic and somnolent when she presented to the emergency department. She was intubated because she could not protect her airway. Current vital signs are reviewed. Temperature 98.1, heart rate 88, respiratory rate 22, blood pressure 104/65, mean 78, saturations 98% on 40% FiO2 and 5 of PEEP. Currently sedated on propofol at 30 mcg/kg per per minute. HEENT examination is grossly unremarkable. There is an orally placed endotracheal tube and NG tube. Neck is supple. Full range of motion. No adenopathy or thyromegaly. Neck veins are flat. Cardiovascular examination reveals regular rhythm rate. S1, S2 normal. No S3, S4, or murmur. Heart rate 88. Lungs reveal a few scattered mild rhonchi. Breath sounds for the most part are clear. No wheezes. No crackles. Breath sounds equal bilaterally. Abdomen is soft. Bowel sounds are noted. Extremities are intact. No cyanosis, clubbing, or edema. Skin without rash. Neurologic examination could not be adequately assessed because of her level of sedation. LABS: Reviewed. White count 8.5, hemoglobin 12.5, hematocrit 39.1, platelet count 329,000. Blood gases as mentioned showed a PO2 of 113, pCO2 of 51, and a pH is 7.33. The blood gas is consistent with acute respiratory acidosis. Sodium 141, potassium 4.1, chloride 110, CO2 25, BUN and creatinine were 9 and 0.59. Drug screen was positive for benzodiazepines only. Tylenol was less than 10. Salicylates less than 1. X-RAY: Shows no acute abnormality. Endotracheal tube is noted above the tracheal eli. Medications are reviewed. She is only on chlorhexidine, Pepcid, Narcan, Diprivan, and the IV. ASSESSMENT: 1. Hypoxemic respiratory failure secondary to suicide attempt with Xanax, status post intubation and mechanical ventilation in the emergency department because the patient could not protect her airway. 2. Previous suicide attempts according to the nurse. 3. History of hypothyroidism. 4. History of gastroesophageal reflux disease. 5. History of mild asthma. 6. History of thyroid cancer. 7. Multiple previous surgeries. PLAN: The patient's sedation medication will be discontinued. We will see if we cannot wake her up to move toward weaning and extubation. Additional recommendations and suggestions are forthcoming. Tidal volume is decreased from 470 to 350, respiratory rate increased to 22. The patient's Diprivan will be held. Additional recommendations and suggestions are forthcoming. Once she is fully awake and extubated, Psychiatry will be consulted. No additional recommendations are made. Prognosis is guarded. MMODL / IJN: [id number] /
--- NOTE | 2018-07-01 11:45 | P.HPIM ---
History of Present Illness H&P Date: 07/01/18 Chief Complaint: overdose This is a 48-year-old female, one of Dr. Escobedo's patients, with past medical history of left kidney nephrectomy, GERD, and thyroidectomy. Patient presented to the emergency department via ambulance for reportedly taking approximately 30 Xanax and expressing suicidal intent. Pending arrival to the emergency department, patient was noted to have decreased gag reflex, was very somnolent, and unable to protect her airway. Patient was intubated without complications and transferred to the ICU. Chest x-ray showed endotracheal tube and nasogastric tube in proper positioning with no acute process. ABG revealed pH 7.33, pCO2 51, pO2 113, HCO3 27, CO2 28, O2 sat 98.1. Urine drug screen positive for benzodiazepines, serum alcohol 45. The patient was breathing spontaneously, sedation was discontinued and patient was extubated. She is currently very lethargic, but breathing on her own without complications, she's 98% on 4 L via nasal cannula. When the patient is fully awake and medically stable, will consult psychiatry. Review of Systems Reviewed and negative ROS unobtainable: due to mental status Past Medical History Past Medical History: Asthma, Cancer, Hypertension, Thyroid Disorder Additional Past Medical History / Comment(s): bowel blockage History of Any Multi-Drug Resistant Organisms: None Reported Past Surgical History: Breast Surgery, Section, Hysterectomy, Tonsillectomy, Tubal Ligation Additional Past Surgical History / Comment(s): knee surgery, nasal repair, bowel surgery, donated (L) kidney. nodules removed off vocal cord. thyroidectomy due thryoid cancer . Additional Psychological History / Comment(s): Per family, patient has had suicide attempt in the past Smoking Status: Current every day smoker Past Alcohol Use History: Occasional Past Drug Use History: None Reported - Past Family History Mother Family Medical History: Cancer Additional Family Medical History / Comment(s): area unknown Father Family Medical History: Cancer Additional Family Medical History / Comment(s): Skin cancer, further history unknown by family Medications and Allergies Home Medications Medication Instructions Recorded Confirmed Type ALPRAZolam [Xanax] 0.25 mg PO TID 03/26/16 07/01/18 History Ergocalciferol (Vitamin D2) 50,000 unit PO Q7D 07/01/18 07/01/18 History [Vitamin D2] Hyoscyamine Sulfate [Levbid] 0.75 mg PO BID 07/01/18 07/01/18 History Levothyroxine Sodium [Synthroid] 125 mcg PO DAILY 07/01/18 07/01/18 History Magnesium Oxide [Mag-Ox] 400 mg PO DAILY 07/01/18 07/01/18 History Omeprazole 20 mg PO BID 07/01/18 07/01/18 History Allergies Allergy/AdvReac Type Severity Reaction Status Date / Time aspirin Allergy Unknown Verified 07/01/18 10:11 codeine Allergy Rash/Hives Verified 07/01/18 10:11 Physical Exam Vitals: Vital Signs Temp Pulse Resp BP Pulse Ox 07/01/18 09:00 88 22 104/65 98 07/01/18 08:00 98.1 F 87 14 100/64 98 07/01/18 07:00 89 14 106/61 97 07/01/18 06:45 16 105/59 98 07/01/18 06:30 90 17 102/62 93 L 07/01/18 06:15 90 15 98/65 07/01/18 06:00 98.3 F 86 12 102/64 99 07/01/18 05:45 86 14 107/69 07/01/18 05:30 84 12 123/83 98 07/01/18 05:15 85 12 130/82 07/01/18 05:00 95.7 F L 81 14 123/84 100 07/01/18 04:45 95.7 F L 28 H 100 07/01/18 04:15 81 15 125/87 100 07/01/18 04:00 79 13 124/86 100 07/01/18 03:30 79 13 128/88 100 07/01/18 03:00 82 13 131/88 100 07/01/18 02:30 89 16 131/88 100 07/01/18 02:00 87 17 124/90 100 07/01/18 01:50 87 16 128/88 07/01/18 01:40 88 18 125/80 95 07/01/18 01:30 89 21 136/76 100 07/01/18 01:20 90 30 H 127/85 100 07/01/18 01:10 99 15 143/98 100 07/01/18 00:50 94 L 07/01/18 00:30 97 18 97/74 96 03/16/19 23:06 97.0 F L 98 18 110/63 94 L Intake and Output 06/30/18 07/01/18 07/01/18 22:59 06:59 14:59 Intake Total 130.767 383.500 Output Total 1300 360 Balance -1169.233 23.500 Intake: IV 125 375 Sodium Chloride 0.9% 1, 125 375 000 ml @ 125 mls/hr IV . Q8H [facility] Rx#:[id number] Intake, IV Titration 5.767 8.500 Amount Propofol 1,000 mg In 5.767 Empty Bag 1 bag @ Titrate IV .Q0M [facility] Rx#: [id number] Propofol 1,000 mg In 8.500 Empty Bag 1 bag @ Titrate IV .Q0M [facility] Rx#: [id number] Output: Urine 1300 360 Other: Voiding Method Indwelling Catheter Indwelling Catheter Weight 73.936 kg 64.4 kg - Constitutional General appearance: average body habitus, cooperative, no acute distress - EENT Eyes: PERRLA, normal appearance - Neck Neck: no lymphadenopathy, no normal ROM, no thyromegaly - Respiratory Respiratory: bilateral: CTA, negative: dullness, rales, rhonchi, wheezing - Cardiovascular Rhythm: regular Heart sounds: normal: S1, S2 - Gastrointestinal General gastrointestinal: no distended, normal bowel sounds, no organomegaly, soft - Psychiatric lethargic Results CBC & Chem 7: 07/01/18 05:20 07/01/18 05:20 Labs: Abnormal Lab Results - Last 24 Hours (Table) 06/30/18 06/30/18 07/01/18 Range/Units 23:26 23:28 00:54 ABG pH (7.35-7.45) ABG pCO2 (35-45) mmHg ABG pO2 (83-108) mmHg ABG HCO3 (21-25) mmol/L ABG Total CO2 (19-24) mmol/L ABG O2 Saturation (94-97) % Chloride (98-107) mmol/L Glucose 58 L (74-99) mg/dL POC Glucose (mg/dL) 115 H (75-99) mg/dL Phosphorus (2.5-4.5) mg/dL U Benzodiazepines Scrn Detected H (NotDetected) 07/01/18 07/01/1819 Range/Units 01:52 04:35 05:20 ABG pH (7.35-7.45) ABG pCO2 (35-45) mmHg ABG pO2 303 H (83-108) mmHg ABG HCO3 (21-25) mmol/L ABG Total CO2 26 H (19-24) mmol/L ABG O2 Saturation 100.0 H (94-97) % Chloride 110 H (98-107) mmol/L Glucose 100 H (74-99) mg/dL POC Glucose (mg/dL) 111 H (75-99) mg/dL Phosphorus 5.2 H (2.5-4.5) mg/dL U Benzodiazepines Scrn (NotDetected) 07/01/18 Range/Units 05:24 ABG pH 7.33 L (7.35-7.45) ABG pCO2 51 H (35-45) mmHg ABG pO2 113 H (83-108) mmHg ABG HCO3 27 H (21-25) mmol/L ABG Total CO2 28 H (19-24) mmol/L ABG O2 Saturation 98.1 H (94-97) % Chloride (98-107) mmol/L Glucose (74-99) mg/dL POC Glucose (mg/dL) (75-99) mg/dL Phosphorus (2.5-4.5) mg/dL U Benzodiazepines Scrn (NotDetected) Thrombosis Risk Factor Assmnt - Choose All That Apply Each Factor Represents 1 point: Age 41-60 years, Medical pt on bed rest Thrombosis Risk Factor Assessment Total Risk Factor Score: 2 Thrombosis Risk Factor Assessment Level: Low Risk Assessment and Plan Plan: 1. Hypoxemia respiratory failure secondary to suicide attempt suicide attempt with Xanax, status post intubation. Patient has been extubated, and currently on supplemental oxygen via nasal cannula. When medically clear, will consult psychiatry. 2. Hypothyroidism. Continue levothyroxine 125 g 3. GERD. Continue Pepcid 4. Thyroid cancer status post thyroidectomy. Stable 5. GI prophylaxis. Pepcid 6. DVT prophylaxis. Heparin The above impression and plan of care have been discussed and directed by signing physician. Seble Casiano nurse practitioner acting as scribe for signing physician.
[2018-07-01] MEDS ORDERED: RACEPINEPHRINE 2.25% NEB 0.5 ML NEBU INHALATION STA (12:07)
[2018-07-01] MEDS: DEXAMETHASONE SOD PHOSPHATE 4 MG/ML 1 ML VIAL IV SCH ×3 (12:45→23:51)
[2018-07-02] MEDS: SODIUM CHLORIDE 0.9% 1,000 ML IV SCH ×2 (03:34→12:32)
[2018-07-02] MEDS ORDERED: LORazepam 2 MG/ML INJ IV STA ×3 (05:29→12:27)
[2018-07-02 05:32] LABS: Basophils % (A) 0 %; Eosinophils # (A) 0.1 k/uL (0-0.7); Eosinophils % (A) 0 %; HCT 41.1 % (34.0-46.0); HGB 12.8 gm/dL (11.4-16.0); Lymphocytes # (A) 1.3 k/uL (1.0-4.8); Lymphocytes % (A) 9 %; MCHC 31.2 g/dL (31.0-37.0); Mean Platelet Volume 9.2; Monocytes # (A) 0.3 k/uL (0-1.0); Monocytes % (A) 2 %; Neutrophils # (A) 12.4 k/uL (1.3-7.7); Neutrophils % (A) 88 %; Platelet Count 339 k/uL (150-450); RBC 4.28 m/uL (3.80-5.40); RDW 14.4 % (11.5-15.5); WBC 14.2 k/uL (3.8-10.6)
[2018-07-02 05:33] LABS: Anion Gap 9 mmol/L; Blood Urea Nitrogen 11 mg/dL (7-17); Calcium 9.5 mg/dL (8.4-10.2); Carbon Dioxide 24 mmol/L (22-30); Chloride 110 mmol/L (98-107); Glucose 132 mg/dL (74-99); Magnesium 2.1 mg/dL (1.6-2.3); Phosphorus 4.2 mg/dL (2.5-4.5); Potassium 4.7 mmol/L (3.5-5.1); Sodium 143 mmol/L (137-145)
[2018-07-02] MEDS: DEXAMETHASONE SOD PHOSPHATE 4 MG/ML 1 ML VIAL IV SCH (05:50)
[2018-07-02] MEDS: LEVOTHYROXINE 125 MCG TAB PO SCH (05:51)
[2018-07-02] MEDS: FAMOTIDINE 20 MG/2 ML VIAL IV SCH (10:11)
--- NOTE | 2018-07-02 11:01 | P.DS ---
Providers Date of admission: 07/01/18 03:04 Expected date of discharge: 07/03/18 Attending physician: Adilson Schneider Consults: 07/01/18 03:04 Consult Physician Routine Consulting Provider: Rashaun Martin Consult Reason/Comments: Suicide attempt Do you want consulting provider notified?: Yes Consult Physician Stat Consulting Provider: Arturo Schaeffer Consult Reason/Comments: Intubated patient Do you want consulting provider notified?: Already Contacted Primary care physician: Andrzej Escobedo [facility] Course: This is a 48-year-old female, one of Dr. Escobedo's patients, with past medical history of left kidney nephrectomy, GERD, and thyroidectomy. Patient presented to the emergency department via ambulance for reportedly taking approximately 30 Xanax and expressing suicidal intent. Pending arrival to the emergency department, patient was noted to have decreased gag reflex, was very somnolent, and unable to protect her airway. Patient was intubated without co mplications and transferred to the ICU. Chest x-ray showed endotracheal tube and nasogastric tube in proper positioning with no acute process. ABG revealed pH 7.33, pCO2 51, pO2 113, HCO3 27, CO2 28, O2 sat 98.1. Urine drug screen positive for benzodiazepines, serum alcohol 45. The patient was breathing spontaneously, sedation was discontinued and patient was extubated. She is currently very lethargic, but breathing on her own without complications, she's 98% on 4 L via nasal cannula. When the patient is fully awake and medically stable, will consult psychiatry. 07/02: Patient remains in the intensive care unit. She has been seen and followed by Dr. Schaeffer. Oxygen saturation is currently 98% on room air, heart rate running in the 90s to low 100s, afebrile, blood pressure 137/82. Patient has been hemodynamically stable and has not required any vasopressors or fluid bolus. White count is 14.2, hemoglobin 12.8, chloride 110, creatinine 0.62. This morning, patient became very violent and combative and threatening to leave. Patient was given a dose of Ativan 2 mg IV at 5:30 AM and this had to be repeated at 8. Patient has been restrained and was released this morning but became very combative. Patient stating that she is going to leave and we cannot keep her here. Patient has injured nursing staff. Restraints have been reapplied and she has a safety investigator at the bedside as well as security was involved. Consult is in place for psychiatry. Patient is cleared medically for discharge to mental health unit. 07/03: Patient remains afebrile, heart rate in the 90s to low 100s, blood pressure 127/77, pulse ox 94% on room air. Patient slept through the night. shim plug cutter remains at the bedside. Patient has been seen by EPS nurse yesterday afternoon with plan to transfer the patient to the mental health unit but currently no beds are available. Social work is developing plan for transfer to outside facility. Patient is on petition filled out by police jewel robinson. The patient was quite uncooperative during the night but aggressive behaviors subsided. Patient is now cooperative. Patient will be transferred once all arrangements are completed. Discharge diagnoses: 1. Acute hypoxemia respiratory failure secondary to suicide attempt suicide attempt with Xanax, requiring intubation. 2. Recurrent depression, possible bipolar affective disorder with suicidal ideation. 3. Generalized anxiety disorder. 4. Abusive and aggressive behavior. 5. Hypothyroidism. 6. GERD. 7. Thyroid cancer status post thyroidectomy. Stable Discharge plan: Inpatient mental health unit Impression and plan of care have been directed as dictated by the signing physician. Patricia Heller nurse practitioner acting as scribe for signing physician. Patient Condition at Discharge: Good Plan - Discharge Summary New Discharge Prescriptions: No Action ALPRAZolam [Xanax] 0.25 mg PO TID Omeprazole 20 mg PO BID Magnesium Oxide [Mag-Ox] 400 mg PO DAILY Hyoscyamine Sulfate [Levbid] 0.75 mg PO BID Levothyroxine Sodium [Synthroid] 125 mcg PO DAILY Ergocalciferol (Vitamin D2) [Vitamin D2] 50,000 unit PO Q7D Discharge Medication List ALPRAZolam [Xanax] 0.25 mg PO TID 03/26/16 [History] Ergocalciferol (Vitamin D2) [Vitamin D2] 50,000 unit PO Q7D 07/01/18 [History] Hyoscyamine Sulfate [Levbid] 0.75 mg PO BID 07/01/18 [History] Levothyroxine Sodium [Synthroid] 125 mcg PO DAILY 07/01/18 [History] Magnesium Oxide [Mag-Ox] 400 mg PO DAILY 07/01/18 [History] Omeprazole 20 mg PO BID 07/01/18 [History] Follow up Appointment(s)/Referral(s): Andrzej Escobedo MD [Primary Care Provider] - 1-2 days
--- NOTE | 2018-07-02 13:25 | P.HP ---
Psychiatric H&P - . H&P Date: 07/01/18 History & Physical: Allergies Allergy/AdvReac Type Severity Reaction Status Date / Time aspirin Allergy Unknown Verified 04/21/17 07:32 codeine Allergy Rash/Hives Verified 04/21/17 07:32 Vital Signs Temp 98.1 F 07/01/18 08:00 Pulse 88 07/01/18 09:00 Resp 22 07/01/18 09:00 BP 104/65 07/01/18 09:00 Pulse Ox 98 07/01/18 09:00 Intake & Output 06/30/18 07/01/18 07/01/18 18:59 06:59 18:59 Intake Total 130.767 383.500 Output Total 1300 360 Balance -1169.233 23.500 Weight 73.936 kg 64.4 kg Intake: IV 125 375 Sodium Chloride 0.9% 1, 125 375 000 ml @ 125 mls/hr IV . Q8H [facility] Rx#:[id number] Intake, IV Titration 5.767 8.500 Amount Propofol 1,000 mg In 5.767 Empty Bag 1 bag @ Titrate IV .Q0M ONE Rx#: [id number] Propofol 1,000 mg In 8.500 Empty Bag 1 bag @ Titrate IV .Q0M [facility] Rx#: [id number] Output: Urine 1300 360 Other: Voiding Method Indwelling Catheter Indwelling Catheter Laboratory Last Values WBC 8.5 k/uL (3.8-10.6) 07/01/18 05:20 RBC 4.05 m/uL (3.80-5.40) 07/01/18 05:20 Hgb 12.5 gm/dL (11.4-16.0) 07/01/18 05:20 Hct 39.1 % (34.0-46.0) 07/01/18 05:20 MCV 96.6 fL (80.0-100.0) 07/01/18 05:20 MCH 30.8 pg (25.0-35.0) 07/01/18 05:20 MCHC 31.9 g/dL (31.0-37.0) 07/01/18 05:20 RDW 14.4 % (11.5-15.5) 07/01/18 05:20 Plt Count 329 k/uL (150-450) 07/01/18 05:20 Neutrophils % 62 % 07/01/18 05:20 Lymphocytes % 26 % 07/01/18 05:20 Monocytes % 6 % 07/01/18 05:20 Eosinophils % 3 % 07/01/18 05:20 Basophils % 1 % 07/01/18 05:20 Neutrophils # 5.3 k/uL (1.3-7.7) 07/01/18 05:20 Lymphocytes # 2.3 k/uL (1.0-4.8) 07/01/18 05:20 Monocytes # 0.5 k/uL (0-1.0) 07/01/18 05:20 Eosinophils # 0.3 k/uL (0-0.7) 07/01/18 05:20 Basophils # 0.0 k/uL (0-0.2) 07/01/18 05:20 Sample Site [facility] 07/01/18 05:24 ABG pH 7.33 (7.35-7.45) L 07/01/18 05:24 ABG pCO2 51 mmHg (35-45) H 07/01/18 05:24 ABG pO2 113 mmHg (83-108) H 07/01/18 05:24 ABG HCO3 27 mmol/L (21-25) H 07/01/18 05:24 ABG Total CO2 28 mmol/L (19-24) H 07/01/18 05:24 ABG O2 Saturation 98.1 % (94-97) H 07/01/18 05:24 ABG Base Excess 0.7 mmol/L 07/01/18 05:24 Óscar Test Yes 07/01/18 05:24 FiO2 40 % 07/01/18 05:24 Sodium 141 mmol/L (137-145) 07/01/18 05:20 Potassium 4.1 mmol/L (3.5-5.1) 07/01/18 05:20 Chloride 110 mmol/L (98-107) H 07/01/18 05:20 Carbon Dioxide 25 mmol/L (22-30) 07/01/18 05:20 Anion Gap 6 mmol/L 07/01/18 05:20 BUN 9 mg/dL (7-17) 07/01/18 05:20 Creatinine 0.59 mg/dL (0.52-1.04) 07/01/18 05:20 Est GFR (CKD-EPI)AfAm >90 (>60 ml/min/1.73 sqM) 07/01/18 05:20 Est GFR (CKD-EPI)NonAf >90 (>60 ml/min/1.73 sqM) 07/01/18 05:20 Glucose 100 mg/dL (74-99) H 07/01/18 05:20 POC Glucose (mg/dL) 111 mg/dL (75-99) H 07/01/18 04:35 POC Glu Ultrasonic Tester Arturo Marrufo 07/01/18 04:35 Calcium 8.8 mg/dL (8.4-10.2) 07/01/18 05:20 Phosphorus 5.2 mg/dL (2.5-4.5) H 07/01/18 05:20 Magnesium 2.0 mg/dL (1.6-2.3) 07/01/18 05:20 Total Bilirubin 0.8 mg/dL (0.2-1.3) 06/30/18 23:26 AST 31 U/L (14-36) 06/30/18 23:26 ALT 24 U/L (9-52) 06/30/18 23:26 Alkaline Phosphatase 79 U/L (38-126) 06/30/18 23:26 Total Protein 8.2 g/dL (6.3-8.2) 06/30/18 23:26 Albumin 4.6 g/dL (3.5-5.0) 06/30/18 23:26 Urine HCG, Qual Not Detected (Not Detectd) 06/30/18 23:28 Salicylates <1.0 mg/dL 06/30/18 23:26 Urine Opiates Screen Not Detected (NotDetected) 06/30/18 23:28 Ur Oxycodone Screen Not Detected (NotDetected) 06/30/18 23:28 Urine Methadone Screen Not Detected (NotDetected) 06/30/18 23:28 Ur Propoxyphene Screen Not Detected (NotDetected) 06/30/18 23:28 Acetaminophen <10.0 ug/mL 06/30/18 23:26 Ur Barbiturates Screen Not Detected (NotDetected) 06/30/18 23:28 U Tricyclic Antidepress Not Detected (NotDetected) 06/30/18 23:28 Ur Phencyclidine Scrn Not Detected (NotDetected) 06/30/18 23:28 Ur Amphetamines Screen Not Detected (NotDetected) 06/30/18 23:28 U Methamphetamines Scrn Not Detected (NotDetected) 06/30/18 23:28 U Benzodiazepines Scrn Detected (NotDetected) H 06/30/18 23:28 Urine Cocaine Screen Not Detected (NotDetected) 06/30/18 23:28 U Marijuana (THC) Screen Not Detected (NotDetected) 06/30/18 23:28 Serum Alcohol 45 mg/dL 06/30/18 23:26 Assessment and Plan Assessment: Patient is a 48-year-old woman brought by ambulance to be evaluated for overdose. The patient had reportedly taken approximately 30 Xanax. She did leave and expressing suicidal intent. The overdose reported to be approximately 3 hours ago. The patient is very somnolent and not providing any history. Pt. brought in by [place] police dept. for OD on Xanax. Pt. wrote a suicide note. Pt. is unresponsive except for painful stimuli. Pt. took and unknown amout of xanax Abuse hx obtained from daughter, daughter states she has limited knowledge MD Complaint: intentional overdose -: hour(s) Intent: suicide attempt Treatments Prior to Arrival: oxygen - Related Data Home Medications Medication Instructions Recorded Confirmed Hyoscyamine Sulfate [Hyoscyamine 0.125 mg SL DAILY 12/11/13 04/21/17 Sulfate SL] Lansoprazole [Prevacid] 30 mg PO BID 12/11/13 04/21/17 Levothyroxine Sodium [Synthroid] 150 mcg PO DAILY 12/11/13 04/21/17 ALPRAZolam [Xanax] 0.125 mg PO HS PRN 03/26/16 04/21/17 Allergies Allergy/AdvReac Type Severity Reaction Status Date / Time aspirin Allergy Unknown Verified 04/21/17 07:32 codeine Allergy Rash/Hives Verified 04/21/17 07:32 Review of Systems ROS Statement: Those systems with pertinent positive or pertinent negative responses have been documented in the HPI. ROS Other: All systems not noted in ROS Statement are negative. Limitations: ROS unobtainable due to patients medical condition (Overdose) Past Medical History Past Medical History: Asthma, Cancer, Hypertension Additional Past Medical History / Comment(s): bowel blockage History of Any Multi-Drug Resistant Organisms: None Reported Past Surgical History: Breast Surgery, Section, Hysterectomy, Tonsillectomy, Tubal Ligation Additional Past Surgical History / Comment(s): knee surgery, nasal repair, bowel surgery, donated (L) kidney. nodules removed off vocal cord. thyroidectomy due thryoid cancer . Past Psychological History: No Psychological Hx Reported Past Alcohol Use History: Occasional Mental Status Examination - this is a [id number] female who looks her stated age. General Appearance: [well groomed casual, appears younger than stated age] Speech/Language: [ slow, hesitant, monotone, soft Attitude/Behavior: [cooperative, guarded withdrawn, indifferent Mood: depressed, anxious, irritable, fearful, hopelessness Affect: [ flat, incongruent, blunted constricted] Orientation: [time, person, place situation] Thought Content: [wnl Risk Factors: [Admits to constant suicidal (ideations, plan), but no Homicidal (ideations, plan), other] Perception: [wnl, denies hallucinations (auditory, visual, tactile), other] Thought Processes: [ concrete, circumstantial, tangential] Concentration/Attention Span: [ impaired] [Per observation and interview with the patient] Recent Memory: [wnl Remote Memory: [wnl [past events, as related history] Intelligence: [ above average] [based on history, based on vocabulary, syntax, grammar, and content] Judgement: [ fair] [per patient's behavior/history of present illness] Insight: [Fair] [understanding severity of illness/history of present illness] Admitting Diagnosis: [Major depressive disorderrecurrent versus bipolar affective disorder depressed with suicidal ideation] Abnormal mental status and serious suicide attempt and neeeds inpatient care Rashaun Martin D.O., PhD. (1) Major depression Current Visit: Yes Status: Acute Code(s): F32.9 - MAJOR DEPRESSIVE DISORDER, SINGLE EPISODE, UNSPECIFIED SNOMED Code(s): 242464593 (2) Suicide attempt Current Visit: Yes Status: Acute Code(s): T14.91XA - SUICIDE ATTEMPT, INITIAL ENCOUNTER SNOMED Code(s): 28137945 Time with Patient: Less than 30
--- NOTE | 2018-07-02 16:33 | P.PN ---
Subjective Progress Note Date: 07/02/18 A 48-year-old female patient was brought in with drug overdose. The patient taken more than 30 tablets of Xanax. She did leave and expressed suicidal intention. The patient is more awake today. She is however very combative. She is very glue bone drier positive. She is being agitated at times knowing that the patient has been placed in 4. restraint as the patient wanted to leave the place without being seen by psychiatry. Also she was becoming very difficult to handle, swelling in a punching at staff, using foul language, yelling, and being completely unreasonable. Upon repeated evaluations, we thought that her mentation is appropriate and she is very much aware of what she is doing. Hemodynamically she is stable. She is unable to tolerate her diet. She was provided breakfast however she refused to eat. No headaches. She is moving all 4 extremities without any limitation. No Cardiac arrhythmias have been noted. No other significant events otherwise for now. As for the rest of the blood work, the patient's hematomas at 12.8. White cell count is at 14.2. She is back on her thyroid medications. She is receiving normal saline at the rate of 20 mL an hour. Objective - Vital Signs Vital signs: Vital Signs Temp 97.2 F L 07/02/18 08:00 Pulse 103 H 07/02/18 10:00 Resp 24 07/02/18 10:00 BP 127/77 07/02/18 10:00 Pulse Ox 94 L 07/02/18 10:00 Intake & Output 07/01/18 07/02/18 07/02/18 18:59 06:59 18:59 Intake Total 8130.952 9985 500 Output Total 1628 1105 640 Balance -119.500 395 -140 Weight 64.4 kg 64.7 kg Intake: IV 1500 1500 500 Sodium Chloride 0.9% 1, 1500 1500 500 000 ml @ 20 mls/hr IV . Q24H [facility] Rx#:[id number] Intake, IV Titration 8.500 Amount Propofol 1,000 mg In 8.500 Empty Bag 1 bag @ Titrate IV .Q0M [facility] Rx#: [id number] Output: Gastric Drainage 200 Urine 1428 1105 640 Other: Voiding Method Indwelling Catheter Indwelling Catheter Indwelling Catheter - Exam The patient appeared well nourished and normally developed. Vital signs as documented. Head exam is unremarkable. No scleral icterus or corneal arcus noted. Neck is without jugular venous distension, thyromegaly, or carotid bruits. Carotid upstrokes are brisk bilaterally. Lungs are clear to auscultation and percussion. Cardiac exam reveals the PMI to be normally sized and situated. Rhythm is regular. First and second heart sounds normal. No murmurs, rubs or gallops. Abdominal exam reveals normal bowel sounds, no masses, no organomegaly and no aortic enlargement. Extremities are nonedematous and both femoral and pedal pulses are normal. Neurologically she is awake and alert and there is no focal neurological deficit. Psychiatrically the patient is agitated and she is depressed with suicidal intentions. - Labs CBC & Chem 7: 07/02/18 04:48 07/02/18 04:48 Labs: Abnormal Lab Results - Last 24 Hours (Table) 07/02/18 07/02/18 Range/Units 04:48 04:48 WBC 14.2 H (3.8-10.6) k/uL Neutrophils # 12.4 H (1.3-7.7) k/uL Chloride 110 H (98-107) mmol/L Glucose 132 H (74-99) mg/dL Microbiology - Last 24 Hours (Table) 07/01/18 04:20 Gram Stain - Preliminary Sputum Sputum Culture - Preliminary Assessment and Plan Plan: Assessment 1 acute drug overdose with Xanax. The patient is post intubation subsequent extubation. The patient's mentation had improved and the patient is alert and awake and interactive although very much agitated and uncooperative. 2 depression with suicidal intention 3 acute hypoxic respiratory failure post Xanax overdose, extubated currently on room air oxygen. 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 She has undergone nephrectomy for donation purposes 10 history of vocal cord nodule Plan The patient can be released to the psychiatric unit for further treatment of her depression and suicidal intention. She is clear from the medical standpoint and there is no active pulmonary or critical care issue at this point in time. R esume Synthroid. Resume Pepcid careers counsellor 20 mg twice a day. The IV Fluids to KVO.
[2018-07-02] MEDS ORDERED: HALOPERIDOL LACTATE 5 MG/ML 1 ML VIAL IVP ONE (18:05)
[2018-07-02] MEDS ORDERED: HALOPERIDOL LACTATE 5 MG/ML 1 ML VIAL IVP PRN (18:06)
[2018-07-03] MEDS: FAMOTIDINE 20 MG TAB PO SCH ×3 (00:19→20:33)
[2018-07-03] MEDS: LEVOTHYROXINE 125 MCG TAB PO SCH (05:50)
--- NOTE | 2018-07-03 09:24 | P.PN ---
Subjective Progress Note Date: 07/02/18 This is a 48-year-old female, one of Dr. Escobedo's patients, with past medical history of left kidney nephrectomy, GERD, and thyroidectomy. Patient presented to the emergency department via ambulance for reportedly taking approximately 30 Xanax and expressing suicidal intent. Pending arrival to the emergency department, patient was noted to have decreased gag reflex, was very somnolent, and unable to protect her airway. Patient was intubated without complications and transferred to the ICU. Chest x-ray showed endotracheal tube and nasogastric tube in proper positioning with no acute process. ABG revealed pH 7.33, pCO2 51, pO2 113, HCO3 27, CO2 28, O2 sat 98.1. Urine drug screen positive for benzodiazepines, serum alcohol 45. The patient was breathing spontaneously, sedation was discontinued and patient was extubated. She is currently very lethargic, but breathing on her own without complications, she's 98% on 4 L via nasal cannula. When the patient is fully awake and medically stable, will consult psychiatry. 07/02: Patient remains in the intensive care unit. She has been seen and followed by Dr. Schaeffer. Oxygen saturation is currently 98% on room air, heart rate running in the 90s to low 100s, afebrile, blood pressure 137/82. White count is 14.2, hemoglobin 12.8, chloride 110, creatinine 0.62. This morning, patient became very violent and combative and threatening to leave. Patient was given a dose of Ativan 2 mg IV at 5:30 AM and this had to be repeated at 8. P atient has been restrained and remains so. Patient has a safety glass installer at the bedside as well as security was involved. Consult is in place for psychiatry.Patient is cleared medically for discharge to mental health unit. Review Of Systems: Constitutional: No fever, no chills, no night sweats. No weight change. No weakness, fatigue or lethargy. No daytime sleepiness. EENT: No headache. No blurred vision or double vision, no loss of vision. No loss of Hearing, no ringing in the ears, no dizziness. No nasal drainage or congestion. No epistaxis. No sore throat. Lungs: No shortness of breath, cough, no sputum production. No wheezing. Cardiovascular: No chest pain, no lower extremity edema. No palpitations. No paroxysmal nocturnal dyspnea. No orthopnea. No lightheadedness or dizziness. No syncopal episodes. Abdominal: No abdominal pain. No nausea, vomiting. No diarrhea. No constipation. No bloody or tarry stools.. No loss of appetite. Genitourinary: No dysuria, increased frequency, urgency. No urinary retention. Musculoskeletal: No myalgias. No muscle weakness, no gait dysfunction, no frequent falls. No back pain. No neck pain. Integumentary: No wounds, no lesions. No rash or pruritus. No unusual bruising. No change in hair or nails. Neurologic: No aphasia. No facial droop. No change in mentation. No head injury. No headache. No paralysis. No paresthesia. Psychiatric: No depression. No anxiety. Reports mood swings. Endocrine: No abnormal blood sugars. No weight change. No excessive sweating or thirst. No cold intolerance. No weight change. Objective - Vital Signs Vital signs: Vital Signs Temp 98.0 F 07/02/18 05:15 Pulse 98 07/02/18 07:00 Resp 15 07/02/18 07:00 BP 137/82 07/02/18 06:00 Pulse Ox 98 07/02/18 05:15 Intake & Output 07/01/18 07/02/18 07/02/18 18:59 06:59 18:59 Intake Total 0655.206 3763 125 Output Total 1628 1105 100 Balance -119.500 395 25 Weight 64.4 kg 64.7 kg Intake: IV 1500 1500 125 Sodium Chloride 0.9% 1, 1500 1500 125 000 ml @ 125 mls/hr IV . Q8H [facility] Rx#:[id number] Intake, IV Titration 8.500 Amount Propofol 1,000 mg In 8.500 Empty Bag 1 bag @ Titrate IV .Q0M [facility] Rx#: [id number] Output: Gastric Drainage 200 Urine 1428 1105 100 Other: Voiding Method Indwelling Catheter Indwelling Catheter - Exam Gen: This is a 48-year-old female. She was seen in the ICU. Patient is currently not restrained. HEENT: Head is atraumatic, normocephalic. Pupils equal, round. Sclerae is anicteric. NECK: Supple. No JVD. No lymphadenopathy. No thyromegaly. LUNGS: Clear to auscultation. No wheezes or rhonchi. No intercostal retractions. HEART: Regular rate and rhythm. No murmur. ABDOMEN: Soft. Bowel sounds are present. No masses. No tenderness. EXTREMITIES: No pedal edema. No calf tenderness. NEUROLOGICAL: Patient is awake, alert and oriented x3. Cranial nerves 2 through 12 are grossly intact. - Labs CBC & Chem 7: 07/02/18 04:48 07/02/18 04:48 Labs: Abnormal Lab Results - Last 24 Hours (Table) 07/02/18 07/02/18 Range/Units 04:48 04:48 WBC 14.2 H (3.8-10.6) k/uL Neutrophils # 12.4 H (1.3-7.7) k/uL Chloride 110 H (98-107) mmol/L Glucose 132 H (74-99) mg/dL Microbiology - Last 24 Hours (Table) 07/01/18 04:20 Gram Stain - Preliminary Sputum Sputum Culture - Preliminary Assessment and Plan Plan: 1. Acute hypoxemia respiratory failure secondary to suicide attempt suicide attempt with Xanax, requiring intubation. Patient has been extubated, and currently on supplemental oxygen via nasal cannula. Respiratory status is stable. 2. Recurrent depression, possible bipolar affective disorder with suicidal ideation. Patient is currently followed by psychiatry with plan for inpatient care. Continue Haldol 4 mg IV every 3 hours as needed. 3. Generalized anxiety disorder. Patient is normally on Xanax 0.25 mg 3 times daily. 4. Abusive and aggressive behavior. Continue Haldol and restraints as needed. 5. Hypothyroidism. Continue levothyroxine 125 g. TSH and free T4. 6. GERD. Continue Pepcid 7. Thyroid cancer status post thyroidectomy. Stable 8. GI prophylaxis. Pepcid 9. DVT prophylaxis. Lovenox Discharge plan: Inpatient mental health unit Impression and plan of care have been directed as dictated by the signing physician. Patricia Heller nurse practitioner acting as scribe for signing physician.
[2018-07-03] MEDS ORDERED: ENOXAPARIN 40 MG/0.4 ML SYRINGE SQ SCH (09:30)
[2018-07-03] MEDS: SODIUM CHLORIDE 0.9% 1,000 ML IV SCH (10:17)
[2018-07-03 11:01] LABS: T4, Free (Free Thyroxine) 1.8 ng/dL (0.78-2.19)
[2018-07-03] MEDS ORDERED: ACETAMINOPHEN TAB 325 MG TAB PO PRN (11:33)
--- NOTE | 2018-07-03 13:17 | P.PN ---
Subjective Progress Note Date: 07/03/18 on today's evaluation of 07/03/2018, the patient is doing extremely well. Mental status is completely within normal limits. The patient is very cooperative. No agitation. No restlessness. No combative behavior. She is very cooperative. She is tolerating her diet. No focal logical deficits. We are awaiting a psychiatric evaluation again as the patient was being considered for inpatient psych treatment regarding her depression and suicidal attempt. Otherwise, she is doing extremely well and there has been no other significant events overnight. The patient is on Lovenox for DVT prophylaxis. The patient is on IV fluids at [facility]. Objective - Vital Signs Vital signs: Vital Signs Temp 97.2 F L 07/02/18 08:00 Pulse 103 H 07/02/18 10:00 Resp 24 07/02/18 10:00 BP 127/77 07/02/18 10:00 Pulse Ox 94 L 07/02/18 10:00 Intake & Output 07/02/18 07/03/18 07/03/18 18:59 06:59 18:59 Intake Total 500 0 Output Total 640 0 Balance -140 0 Intake: IV 500 0 Sodium Chloride 0.9% 1, 500 0 000 ml @ 20 mls/hr IV . Q24H [facility] Rx#:[id number] Output: Urine 640 0 Other: Voiding Method Indwelling Catheter Indwelling Catheter Indwelling Catheter # Voids 1 - Exam The patient appeared well nourished and normally developed. Vital signs as documented. Head exam is unremarkable. No scleral icterus or corneal arcus noted. Neck is without jugular venous distension, thyromegaly, or carotid bruits. Carotid upstrokes are brisk bilaterally. Lungs are clear to auscultation and percussion. Cardiac exam reveals the PMI to be normally sized and situated. Rhythm is regular. First and second heart sounds normal. No murmurs, rubs or gallops. Abdominal exam reveals normal bowel sounds, no masses, no organomegaly and no aortic enlargement. Extremities are nonedematous and both femoral and pedal pulses are normal. Neurologically she is awake and alert and there is no focal neurological deficit. Psychiatrically the patient is anot showing any signs of any anxiety or agitation at this point in time. - Labs CBC & Chem 7: 07/02/18 04:48 07/02/18 04:48 Labs: Abnormal Lab Results - Last 24 Hours (Table) 07/02/18 Range/Units 04:48 TSH 0.246 L (0.465-4.680) mIU/L Microbiology - Last 24 Hours (Table) 07/01/18 04:20 Gram Stain - Preliminary Sputum Sputum Culture - Final Assessment and Plan Plan: Assessment 1 acute drug overdose with Xanax. The patient is post intubation subsequent extubation. The patient's mentation had improved and the patient is alert and awake and her mental status is essentially normalized. 2 depression with suicidal intention 3 acute hypoxic respiratory failure post Xanax overdose, extubated currently on room air oxygen. 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 She has undergone nephrectomy for donation purposes 10 history of vocal cord nodule Plan The patient can be discharged out of the intensive care unit for inpatient psychiatry evaluation or any other alternative location decided upon by Dr. Martin from psychiatric services.
[2018-07-03] MEDS ORDERED: NICOTINE 14MG/24HR PATCH TRANSDERM SCH (18:30)
[2018-07-03 18:37] VITALS: RESP 18
[2018-07-03] MEDS ORDERED: LEVOTHYROXINE 125 MCG TAB PO SCH (21:00)
[2018-07-03 22:29] VITALS: BP 133/88; PULSE 94; TEMP 97.4
== END 2018-07-03 22:55 | DRG 917 ==
LOC: EC 22:59 → 2SICU 07-01 03:04
PROVIDERS: ADMIT Internal Medicine; ATTEND Internal Medicine
PROC: 5A1935Z Respiratory Ventilation, Less than 24 Consecutive Hours (ICD-10-PCS; principal; 2018-06-30)
PROC: 0BH17EZ Insertion of Endotracheal Airway into Trachea, Via Natural or Artificial Opening (ICD-10-PCS; 2018-06-30)
DX: T42.4X2A Poisoning by benzodiazepines, intentional self-harm, initial encounter (principal); J96.01 Acute respiratory failure with hypoxia; E89.0 Postprocedural hypothyroidism; F17.210 Nicotine dependence, cigarettes, uncomplicated; F31.9 Bipolar disorder, unspecified; F41.1 Generalized anxiety disorder; I10 Essential (primary) hypertension; J45.909 Unspecified asthma, uncomplicated; K21.9 Gastro-esophageal reflux disease without esophagitis; Z79.890 Hormone replacement therapy; Z80.8 Family history of malignant neoplasm of other organs or systems; Z85.3 Personal history of malignant neoplasm of breast; Z85.850 Personal history of malignant neoplasm of thyroid; Z90.5 Acquired absence of kidney; Z90.710 Acquired absence of both cervix and uterus; Z91.5 Personal history of self-harm; Z79.899 Other long term (current) drug therapy; Z88.6 Allergy status to analgesic agent; Z88.5 Allergy status to narcotic agent; Z87.19 Personal history of other diseases of the digestive system
CPT/HCPCS: 31500; 36415; 36600; 71045; 80048; 80053; 80306; 80320; 81025; 82805; 83520; 83735; 84100; 84439; 84443; 85025; 87070; 87205; 93005; 94002; 94640; 99291

== ENCOUNTER 2018-07-03 21:54 | Inpatient (IN) | payer OTHER ==
[2018-07-03] MEDS ORDERED: MAGNESIUM HYDROXIDE 2,400 MG/10 ML CUP PO PRN (23:54)
[2018-07-03] MEDS ORDERED: ZIPRASIDONE 20 MG VIAL IM PRN (23:54)
[2018-07-03] MEDS ORDERED: MAG HYDROX/AL HYDROX/SIMETH 30 ML CUP PO PRN (23:54)
[2018-07-04] MEDS: LORazepam 1 MG TAB PO PRN ×2 (01:28→21:46)
[2018-07-04] MEDS: LEVOTHYROXINE 125 MCG TAB PO SCH (06:49)
[2018-07-04] MEDS: NICOTINE 14MG/24HR PATCH TRANSDERM SCH (09:07)
[2018-07-04 09:58] LABS: Cholesterol 214 mg/dL (<200); HDL Cholesterol 53 mg/dL (40-60); LDL Cholesterol,Calculated 135 mg/dL (0-99); Triglycerides 128 mg/dL (<150)
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
[2018-07-04] MEDS: PANTOPRAZOLE 40 MG TABLET PO SCH (12:51)
[2018-07-04] MEDS: MAGNESIUM OXIDE 400 MG TAB PO SCH (13:32)
[2018-07-04] MEDS: ACETAMINOPHEN TAB 325 MG TAB PO PRN ×2 (14:50→18:39)
[2018-07-04] MEDS ORDERED: ACETAMINOPHEN TAB 500 MG TAB PO STA (15:15)
--- NOTE | 2018-07-04 16:44 | P.HPIM ---
History of Present Illness H&P Date: 07/04/18 Chief Complaint: Chest pain, medical management 48-year-old female with PMH of hypothyroidism, GERD, history of nephrectomy presents to the ED after a Xanax overdose for suicidal ideations. [facility] is being consulted for medical management of the patient. Patient is complaints of chest pain, since being extubated and discharged from the ICU. Patient believes that her pain is likely related to extubation. She also complains of a cough that is nonproductive. Of note, patient presented to the ED after taking 30 Xanax along with alcohol, expressing suicidal ideations. She was intubated to protect her airway. Patient was extubated the same day of intubation without complications. Patient expressed her intent to leave, became very violent and combative and had to have a director safety council at bedside. Psychiatry was consulted at that time and she was discharged to the mental health unit. Patient reports that she was DO NOT RESUSCITATE and that the hospital violated her DO NOT RESUSCITATE right. Patient denies headache, nausea, vomiting, fever, shortness of breath, palpitations, changes in urination or bowel habits. No changes in appetite or weight. She does complain of right upper and right lower extremity swelling, related to mastectomy received in the past for breast cancer. Review of Systems All systems: negative Past Medical History Past Medical History: Asthma, Cancer, Hypertension Additional Past Medical History / Comment(s): bowel blockage History of Any Multi-Drug Resistant Organisms: None Reported Past Surgical History: Breast Surgery, Section, Hysterectomy, Tonsillectomy, Tubal Ligation Additional Past Surgical History / Comment(s): knee surgery, nasal repair, bowel surgery, donated (L) kidney. nodules removed off vocal cord. thyroidectomy due thryoid cancer . Past Psychological History: No Psychological Hx Reported Past Alcohol Use History: Occasional - Past Family History Mother Family Medical History: Cancer Additional Family Medical History / Comment(s): area unknown Father Family Medical History: Cancer Additional Family Medical History / Comment(s): Skin cancer, further history unknown by family Medications and Allergies Home Medications Medication Instructions Recorded Confirmed Type ALPRAZolam [Xanax] 0.25 mg PO TID 03/26/16 07/04/18 History Ergocalciferol (Vitamin D2) 50,000 unit PO Q7D 07/01/18 07/04/18 History [Vitamin D2] Hyoscyamine Sulfate [Levbid] 0.375 mg PO BID 07/01/18 07/04/18 History Levothyroxine Sodium [Synthroid] 125 mcg PO DAILY 07/01/18 07/04/18 History Magnesium Oxide [Mag-Ox] 400 mg PO DAILY 07/01/18 07/04/18 History Omeprazole 20 mg PO BID 07/01/18 07/04/18 History Allergies Allergy/AdvReac Type Severity Reaction Status Date / Time aspirin Allergy Unknown Verified 07/04/18 07:15 codeine Allergy Rash/Hives Verified 07/04/18 07:15 Physical Exam Vitals: Vital Signs Temp Pulse Resp BP 07/03/18 23:20 97.0 F L 97 18 133/74 Intake and Output 07/04/18 07/04/18 07/04/18 06:59 14:59 22:59 Other: Weight 64.7 kg General: [non toxic], [no distress], [appears at stated age] Derm: [warm], [dry] Head: [atraumatic], [normocephalic], [symmetric] Eyes: [EOMI], [no lid lag], [anicteric sclera] Mouth: [no lip lesion], [mucus membranes moist] Cardiovascular: [S1S2 reg], [no murmur] Lungs: [CTA bilateral], [no rhonchi, no rales] , [no accessory muscle use] Abdominal: [soft], [ nontender to palpation], [no guarding], [no appreciable organomegaly] Ext: [no gross muscle atrophy], [no edema], [no contractures] Neuro: [no focal neuro deficits] Psych: [Alert], [oriented], [appropriate affect] Results Labs: Abnormal Lab Results - Last 24 Hours (Table) 07/04/18 Range/Units 09:00 Cholesterol 214 H (<200) mg/dL LDL Cholesterol, Calc 135 H (0-99) mg/dL Thrombosis Risk Factor Assmnt - Choose All That Apply Any of the Below Risk Factors Present?: Yes Each Factor Represents 1 point: Age 41-60 years Other Risk Factors: No Other congenital or acquired thrombophilia - If yes, enter type in comment: No Thrombosis Risk Factor Assessment Total Risk Factor Score: 1 Thrombosis Risk Factor Assessment Level: Low Risk Assessment and Plan Assessment: Assessment and Plan 1. Chest pain 2. Hypothyroidism 3. GERD 4. Lesion in the lung 5. Suicidal ideation 1. Likely secondary to extubation. Patient reports the pain to be pleuritic in nature. Will order EKG with cardiac profile. Cepacol for sore throat. Tylenol for pain. 2. Continue levothyroxine 125 g daily. 3. Protonix 40 mg by mouth daily. 4. Was supposed to get CT of the chest for abnormal lesion found on previous imaging at 10:[address] Flores at [facility]. She will need to follow-up with Dr. Flores for repeat imaging of the chest. 5. Management as per psychiatry. Patient with chest pain, pleuritic, recent extubation. Order troponin/EKG but low risk and concern for ACS. Thank you for this consult.
[2018-07-04 17:21] LABS: Hemoglobin A1C 6.6 % (4.0-6.0)
[2018-07-04 18:27] LABS: Creatine Kinase 291 U/L (30-135)
[2018-07-04 18:40] LABS: Troponin I <0.012 ng/mL (0.000-0.034)
[2018-07-04] MEDS: BENZOCAINE/MENTHOL LOZENG 1 EACH LOZENGE MUCOUS MEM PRN ×2 (19:05→21:44)
[2018-07-04] MEDS: HYOSCYAMINE SULFATE 0.375 MG TAB.ER.12H PO SCH (21:46)
[2018-07-05] MEDS: LEVOTHYROXINE 125 MCG TAB PO SCH (06:38)
[2018-07-05 07:04] VITALS: RESP 16
[2018-07-05] MEDS ORDERED: PANTOPRAZOLE 40 MG TABLET PO SCH (07:30)
[2018-07-05] MEDS: ACETAMINOPHEN TAB 325 MG TAB PO PRN ×4 (07:33→21:36)
[2018-07-05] MEDS: HYOSCYAMINE SULFATE 0.375 MG TAB.ER.12H PO SCH ×2 (07:34→21:36)
[2018-07-05] MEDS: PANTOPRAZOLE 40 MG TABLET PO SCH (07:34)
[2018-07-05] MEDS: NICOTINE 14MG/24HR PATCH TRANSDERM SCH (07:34)
[2018-07-05] MEDS: MAGNESIUM OXIDE 400 MG TAB PO SCH (07:34)
[2018-07-05] MEDS: BENZOCAINE/MENTHOL LOZENG 1 EACH LOZENGE MUCOUS MEM PRN ×4 (07:35→21:36)
--- NOTE | 2018-07-05 09:45 | P.PN ---
Progress Note - Text Interval history: The patient's found in the library. She indicates her mood is good. She reports that she attended groups yesterday. She states that she breakfast and slept throughout the night. Staff reported she slept 7 hours she states she woke 2 or 3 times during the evening. She did have a visit from her daughters. The patient states that she has spoken to several family members and friends via phone. We discussed strategies she would use in times of crisis to get help. She again is focused on being discharged. Mental status exam: The patient is alert she is much more cooperative. She is dressed in her own clothing she seated calmly in her chair. Eye contact is appropriate speech is fluent spontaneous nonpressured. She indicates her mood is good. Affect is constricted. She is reporting no suicidal ideation intent or plan. She is reporting no homicidal ideation intent or plan. She reports no symptoms of psychosis there are no observed symptoms of psychosis. Thought process is linear she demonstrates no tangential thinking loose associations or flight of ideas. She demonstrates no verbal or physical aggressiveness. Plan: The patient continues to state she does not want to have a medication prescribed to her. She states that she is willing to participate in groups and she is willing to work with a therapist in the outpatient setting for coping skill development. At this point the patient's is endorsing no symptoms however she is trying to facilitate a discharge. We will have social work arrange a support meeting to gather collateral information from her daughters. Additionally this will help us assess the patient's level of support upon discharge. The patient indicates that one of her daughters will be residing with her once she is discharged. We will continue to monitor the patient for safety she is encouraged to continue participating in the milieu. Vital signs reviewed.
[2018-07-05] MEDS: LORazepam 1 MG TAB PO PRN (21:36)
[2018-07-06] MEDS: LEVOTHYROXINE 125 MCG TAB PO SCH (06:10)
[2018-07-06 06:47] VITALS: BP 127/61; PULSE 62; TEMP 97.9
[2018-07-06] MEDS: PANTOPRAZOLE 40 MG TABLET PO SCH (07:39)
[2018-07-06] MEDS: NICOTINE 14MG/24HR PATCH TRANSDERM SCH (07:40)
[2018-07-06] MEDS: HYOSCYAMINE SULFATE 0.375 MG TAB.ER.12H PO SCH (07:40)
[2018-07-06] MEDS: MAGNESIUM OXIDE 400 MG TAB PO SCH (07:40)
[2018-07-06] MEDS: ACETAMINOPHEN TAB 325 MG TAB PO PRN ×2 (07:40→12:35)
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
[2018-07-06] MEDS: BENZOCAINE/MENTHOL LOZENG 1 EACH LOZENGE MUCOUS MEM PRN (12:34)
== END 2018-07-06 16:08 | disposition home or self-care (01) | DRG 885 ==
LOC: 3MHU 23:22
PROVIDERS: ADMIT Psychiatry & Neurology Psychiatry; ATTEND Psychiatry & Neurology Psychiatry
DX: F33.2 Major depressive disorder, recurrent severe without psychotic features (principal); E89.0 Postprocedural hypothyroidism; F43.22 Adjustment disorder with anxiety; I10 Essential (primary) hypertension; J45.909 Unspecified asthma, uncomplicated; K21.9 Gastro-esophageal reflux disease without esophagitis; Z66 Do not resuscitate; Z79.890 Hormone replacement therapy; Z79.899 Other long term (current) drug therapy; Z80.8 Family history of malignant neoplasm of other organs or systems; Z85.3 Personal history of malignant neoplasm of breast; Z85.42 Personal history of malignant neoplasm of other parts of uterus; Z85.850 Personal history of malignant neoplasm of thyroid; Z90.5 Acquired absence of kidney; Z90.710 Acquired absence of both cervix and uterus; Z91.410 Personal history of adult physical and sexual abuse; Z88.6 Allergy status to analgesic agent; Z88.5 Allergy status to narcotic agent; Z81.8 Family history of other mental and behavioral disorders
CPT/HCPCS: 80061; 82550; 82553; 83036; 84484

== ENCOUNTER → 2019-05-30 | Outpatient (CLI) | payer BC ==
--- NOTE | 2019-06-06 14:07 | MM ---
Reason for exam: clinical finding. Last mammogram was performed 7 months ago. History: Patient is postmenopausal, has history of breast cancer at age 45, has history of endometrial cancer at age 25, and has history of other cancer at age 18. Family history of breast cancer in mother at age 30, premenopausal breast cancer in sister at age 30, and breast cancer in maternal aunt. Benign US biopsy breast VAD RT of the right breast, April 21, 2017. Benign US biopsy breast add'l VAD RT of the right breast, April 21, 2017. Malignant US biopsy breast VAD RT of the right breast, August 04, 2015. Benign excisional biopsy of the right breast, May 27, 2002. Ultrasound-guided cyst aspiration of the right breast, November 15, 1999. Cyst aspiration of the right breast. Taking hormonal contraceptives for 6 years beginning at age 32. Indicated problem(s): lump or thickening in the right breast. Physical Findings: Nurse Summary: 1cm nodule in the right breast at 9 o'clock (nurse su). MG Diagnostic Mammo RT w CAD CC and MLO view(s) were taken of the right breast. Prior study comparison: November 01, 2018, mammogram, performed at [facility]. November 01, 2018, right breast ultrasound, performed at [facility]. October 31, 2017, mammogram, performed at [facility]. April 21, 2017, right breast MG diagnostic mammo RT wo CAD. April 08, 2017, right breast MG diagnostic mammo RT w CAD. There are scattered fibroglandular densities. Palpable marker at 9 o'clock. Post surgical change and multiple areas of stable fat necrosis calcifications. Asymmetric density posterior superior right breast is more defined. ASSESSMENT: Incomplete: need additional imaging evaluation, BI-RAD 0 RECOMMENDATION: Special view mammogram of the right breast. (3D)
--- NOTE | 2019-06-06 14:09 | USB ---
Reason for exam: clinical finding. History: Patient is postmenopausal, has history of breast cancer at age 45, has history of endometrial cancer at age 25, and has history of other cancer at age 18. Family history of breast cancer in mother at age 30, premenopausal breast cancer in sister at age 30, and breast cancer in maternal aunt. Benign US biopsy breast VAD RT of the right breast, April 21, 2017. Benign US biopsy breast add'l VAD RT of the right breast, April 21, 2017. Malignant US biopsy breast VAD RT of the right breast, August 04, 2015. Benign excisional biopsy of the right breast, May 27, 2002. Ultrasound-guided cyst aspiration of the right breast, November 15, 1999. Cyst aspiration of the right breast. Taking hormonal contraceptives for 6 years beginning at age 32. US Breast RT Right complete breast ultrasound includes all four quadrants, the retroareolar region and axilla. Finding demonstrates a 0.8 x 0.7 x 0.4cm oval, mixed, hypoechoic lesion at 4 o'clock fat necrosis, a 0.3 x 0.2 x 0.2cm oval, cystic lesion at 4 o'clock, a 1.7 x 1.4 x 1.0cm oval, mixed lesion at 9 o'clock fat necrosis and a 0.5 x 0.4 x 0.3cm oval, mixed lesion at 10 o'clock possibly additional area of fat necrosis. These results were verbally communicated with the patient and result sheet given to the patient on 05/30/19. ASSESSMENT: Probably benign, BI-RAD 3 RECOMMENDATION: Ultrasound of the right breast in 6 months. (at 10 o'clock)
== END ==
LOC: RADMAMWWP 10:03
PROVIDERS: ATTEND Internal Medicine Hematology & Oncology
DX: N63.10 Unspecified lump in the right breast, unspecified quadrant (principal); N64.4 Mastodynia; Z85.3 Personal history of malignant neoplasm of breast
CPT/HCPCS: 77065

== ENCOUNTER → 2019-06-11 | Outpatient (CLI) | payer BC ==
--- NOTE | 2019-06-12 07:10 | MM ---
Reason for exam: additional evaluation requested from abnormal screening. Last mammogram was performed less than 1 month ago. History: Patient is postmenopausal, has history of breast cancer at age 45, has history of endometrial cancer at age 25, and has history of other cancer at age 18. Family history of breast cancer in mother at age 30, premenopausal breast cancer in sister at age 30, and breast cancer in maternal aunt. Benign US biopsy breast VAD RT of the right breast, April 21, 2017. Benign US biopsy breast add'l VAD RT of the right breast, April 21, 2017. Malignant US biopsy breast VAD RT of the right breast, August 04, 2015. Benign excisional biopsy of the right breast, May 27, 2002. Ultrasound-guided cyst aspiration of the right breast, November 15, 1999. Cyst aspiration of the right breast. Taking hormonal contraceptives for 6 years beginning at age 32. Physical Findings: See breast exam from 05/30/19. MG Work Up Mamm w CAD RT Spot compression MLO, LM, and XCCL view(s) were taken of the right breast. Prior study comparison: May 30, 2019, right breast MG diagnostic mammo RT w CAD. November 01, 2018, mammogram, performed at [facility]. The breast tissue is heterogeneously dense. This may lower the sensitivity of mammography. The previously seen abnormality resolves on additional views and appears as fibroglandular tissue compatible with summation. Post therapy change on the right. These results were verbally communicated with the patient and result sheet given to the patient on 06/11/19. ASSESSMENT: Probably benign, BI-RAD 3 RECOMMENDATION: Follow-up diagnostic mammogram of both breasts in 6 months. Back on schedule. Ultrasound of the right breast in 6 months.
== END | disposition home or self-care (01) ==
LOC: RADMAMWWP 14:57
PROVIDERS: ATTEND Internal Medicine Hematology & Oncology
DX: R92.8 Other abnormal and inconclusive findings on diagnostic imaging of breast (principal)
CPT/HCPCS: 77065

== ENCOUNTER → 2021-03-04 | Outpatient (CLI) | payer BC ==
--- NOTE | 2021-03-10 09:51 | USB ---
Reason for exam: clinical finding. History: Patient is postmenopausal, has history of breast cancer at age 45, has history of endometrial cancer at age 25, and has history of other cancer at age 18. Family history of breast cancer in mother at age 30, premenopausal breast cancer in sister at age 30, and breast cancer in maternal aunt. Benign US biopsy breast VAD RT of the right breast, April 21, 2017. Benign US biopsy breast add'l VAD RT of the right breast, April 21, 2017. Malignant US biopsy breast VAD RT of the right breast, August 04, 2015. Benign excisional biopsy of the right breast, May 27, 2002. Ultrasound-guided cyst aspiration of the right breast, November 15, 1999. Cyst aspiration of the right breast. Taking hormonal contraceptives for 6 years beginning at age 32. Physical Findings: Nurse Summary: 1cm palpable, 0.5cm palpable (nurse ms). US Breast RT Right complete breast ultrasound includes all four quadrants, the retroareolar region and axilla. Finding demonstrates a 0.6 x 0.5 x 0.5cm oval, irregular, solid, hyperechoic, calcification nodule at 4 o'clock, a 0.2 x 0.2 x 0.2cm oval, irregular, solid, hyperechoic, calcification nodule at 4 o'clock, a 0.3 x 0.3 x 0.2cm oval, complex, cystic lesion at 5 o'clock, a 1.6 x 1.3 x 0.9cm oval, irregular, complex, cystic lesion, oil cyst at 9 o'clock, a 0.3 x 0.3 x 0.3cm oval, hyperechoic lesion at 9 o'clock and a 1.2 x 1.2 x 0.3cm linear, questionable ductal, mixed lesion at 9 o'clock, coarse calcifications on mammogram. These results were verbally communicated with the patient on 03/09/21. ASSESSMENT: Probably benign, BI-RAD 3 RECOMMENDATION: Ultrasound of the right breast in 6 months. Manage patient on a clinical basis.
== END | disposition home or self-care (01) ==
LOC: RADUSWWP 08:11
PROVIDERS: ATTEND Surgery
DX: N60.01 Solitary cyst of right breast (principal); N63.14 Unspecified lump in the right breast, lower inner quadrant; Z78.0 Asymptomatic menopausal state; Z85.3 Personal history of malignant neoplasm of breast; Z80.3 Family history of malignant neoplasm of breast; Z85.42 Personal history of malignant neoplasm of other parts of uterus